=== PATIENT | male | born 1965 | race Caucasian/White ===

== ENCOUNTER 2016-11-06 15:06 | Inpatient (IN) | payer OTHER, MEDICARE ==
[~2016-11-06] VITALS: Ht 177.8 cm; Wt 101.6 kg
--- NOTE | 2016-11-06 15:27 | NUR ---
PT TO TRIAGE WITH FAMILY, SENT HERE BY HIS PCP FOR PSYCH EVAL. PT C/O HEARING THREATENING VOICES [id number]. PT DENIES SI/HI. C/O FEELING HOPELESS. APPEARED ANXIOUS,SAD, UNWILLINGLY ANSWERING QUESTIONS, PTS FAMILY ANSWERED MOST OF QUESTIONS. PT DENIES ETOH, DENIES ILLICIT DRUG USE. HX OF HTN,DEPRESSION,ANXIETY. PT TO ROOM15.
--- NOTE | 2016-11-06 15:27 | ED PSYCHIATRIC COMPLAINT ---
History of Present Illness General Chief Complaint: General Adult Stated Complaint: SENT IN FOR ANXIETY Source: patient, family Exam Limitations: confusion Vital Signs & Intake/Output Vital Signs & Intake/Output Vital Signs Date Time Temp Pulse Resp B/P Pulse O2 O2 Flow FiO2 Ox Delivery Rate 11/07 0948 79 141/85 11/07 0641 97.3 79 20 141/85 95 Room Air 11/07 0404 98.0 62 20 120/70 96 Room Air 11/07 0100 96.3 56 18 128/74 96 11/06 2304 97.2 53 20 109/59 90 11/06 1930 97.2 80 18 128/77 96 11/06 1516 97.7 72 18 137/73 94 Room Air ED Intake and Output 11/07 0000 11/06 1200 Intake Total Output Total Balance Patient 224 lb Weight Allergies Coded Allergies: No Known Allergies (11/06/16) Reconcile Medications Atenolol 50 MG TABLET 1 TAB PO DAILY HEART (Reported) Atorvastatin Calcium 40 MG TABLET 1 TAB PO DAILY CHOLESTEROL (Reported) Hydrochlorothiazide 12.5 MG CAPSULE 1 CAP PO DAILY WATER PILL (Reported) Levothyroxine Sodium 100 MCG TABLET 1 TAB PO DAILY AC THYROID (Reported) Losartan Potassium 50 MG TABLET 1 TAB PO DAILY HEART (Reported) Methadone HCl 10 MG/ML ORAL.CONC 100 MG PO DAILY RECOVERY (Reported) Quetiapine Fumarate 300 MG TABLET 1 TAB PO BID MENTAL HEALTH (Reported) Ropinirole HCl (Requip) 2 MG TABLET 1 TAB PO QPM UNKNOWN (Reported) Sertraline HCl 100 MG TABLET 2 TAB PO DAILY MENTAL HEALTH (Reported) Topiramate 100 MG TABLET 1 TAB PO QPM UNKNOWN (Reported) Trazodone HCl 100 MG TABLET 1 TAB PO QPM MENTAL HEALTH (Reported) Triage Nurses Notes Reviewed? yes (NO NOTE TO REVIEW) HPI: MR. ROE IS A 51 YO M W/ PMH DEPRESSION, ANXIETY, HYPERLIPIDEMIA, HYPOTHYROIDISM , HTN BROUGHT INTO ED BY HIS AUNTS FOR INCREASING HALLUCINATIONS. PER AUNT, PATIENT WAS JUST ADMITTED TO [facility], WHERE HE REMAINED FOR 17D, JUST DISCHARGED A FEW DAYS AGO. DURING THAT STAY, HIS SEROQUEL WAS UPTITRATED. PT WENT TO SEE HIS PCP TODAY WHO WAS CONCERNED ABOUT HIS PRESENTATION AND FELT THAT PATIENT NEEDED FURTHER MEDICATION CHANGES. PT HAS BEEN HAVING ONGOING AUDITORY HALLUCINATIONS. HE HAS THESE EPISODES OF "ELECTRIC SHOCK" ALL OVER HIS BODY. HE FEELS THAT "THESE PEOPLE" ARE DOING THIS TO HIM. THEY ALSO HAVE A "RADIATION GUN" THAT THEY SHOOT HIM WITH TO MAKE HIM SICK. AUNT ADDS THAT AT TIMES HE ACCUSES PEOPLE OF POISONING HIM W/ POISONS. HE WAS CONVICNED THAT "THESE PEOPLE" PAID ME (HIS PHYSICIAN TODAY) OFF TO BLAME IT ON HIS PSYCH PROBLEMS. HE BELIEVES THIS IS NOT PSYCH IN NATURE AND HE ONLY WANTED TO SEE A DOCTOR TO CLEAR HIM MEDICALLY. PT DENIES THE VOICES TELLING HIM TO HARM HIMSELF OR OTHERS, BUT STATES THEY HAVE FULL CONVERSATIONS. DENIES ANY DRUG USE. PATIENT IS VERY DIFFICULT TO OBTAIN HISTORY FROM HIS THOUGHTS ARE DISJOINTED. (RUBY GUTIÉRREZ MD) Past History Travel History Traveled to [place] past 21 day No Medical History Any Pertinent Medical History? see below for history Cardiovascular: hypertension, hyperlipidemia Psychiatric: anxiety, depression Endocrine: hypothyroidism Surgical History Surgical History: unobtainable Psychosocial History What is your primary language Comoran Tobacco Use: Current Daily Use Daily Tobacco Use Amount/Type: =< 4 Cigarettes daily Other addictive behavior Hx DAILY METHADONE Family History Hx Contributory? No (UNKNOWN) (RUBY GUTIÉRREZ MD) Review of Systems Review of Systems Constitutional: Reports: no symptoms. EENTM: Reports: no symptoms. Respiratory: Reports: no symptoms. Cardiovascular: Reports: no symptoms. GI: Reports: no symptoms. Genitourinary: Reports: no symptoms. Musculoskeletal: Reports: no symptoms. Skin: Reports: no symptoms. Neurological/Psychological: Reports: anxiety, cognitive dysfunction, emotional problems, other (AUDITORY HALLUCINATIONS). Hematologic/Endocrine: Reports: no symptoms. Immunologic/Allergic: Reports: no symptoms. All Other Systems: Reviewed and Negative (RUBY GUTIÉRREZ MD) Physical Exam Physical Exam General Appearance: well developed/nourished, alert, awake, anxious Head: atraumatic, normal appearance Eyes: Bilateral: normal appearance, PERRL, EOMI. Ears, Nose, Throat: normal pharynx, normal ENT inspection, hearing grossly normal Neck: normal inspection, supple, full range of motion Respiratory: normal breath sounds, chest non-tender, no respiratory distress Cardiovascular: regular rate/rhythm, normal peripheral pulses Gastrointestinal: normal bowel sounds, soft, non-tender, no organomegaly Extremities: normal range of motion Neurological/Psychiatric: awake, agitated, anxious Appearance/Memory/Insight: appropriate appearance, impaired insight Behavoir/Eye Contact/Speech: uncooperative, decreased rate of speech, PARANOID Thoughts/Hallucinations: auditory hallucinations, delusions, flight of ideas, obsessive, paranoid Skin: intact, normal color, warm/dry Cleared? (statement below) Yes Medical Clearance Statement * patient denies further consideration of suicide * no evidence of toxic ingestion * on re-evaluation the patient is awake and alert with pressured speech and normal gait. The patient is clinically sober SAD PERSONS Done? patient not suicidal (MARLA TAMAYO,RUBY) Progress Differential Diagnosis: drug intoxication, encephalitis, hypothyroidism, PSYCHOTIC EPISODE Plan of Care: Orders Procedure Date/time Status Regular Diet 11/07 L Active Regular Diet 11/07 B Complete Admit to inpatient psych 11/07 1039 Active Patient Data - inpatient psych 11/07 1014 Active Admit to inpatient psych 11/07 1014 Active EKG 11/07 1014 Active ED CRISIS PSYCH CONSULT 11/07 0917 Active Vital Signs 11/07 UNK Active Nursing Misc 11/07 UNK Active Alternative Nursing Therapy 11/07 UNK Active Activity/Ambulation 11/07 UNK Active Restraint- Discontinue 11/06 2320 Active Restraint- Behavioral (Renew) 11/06 2145 Active Add-on Test (ER Only) 11/06 1807 Active Restraint- Behavioral (Renew) 11/06 1745 Active THYROID STIMULATING HORMONE 11/06 1723 Complete Restraint- Behavioral (Initial 11/06 1658 Complete Patient Safety Monitor 11/06 1637 Active Restraint- Behavioral (Initial 11/06 1637 Complete URINE DRUGS OF ABUSE 11/06 1635 Complete ETHANOL 11/06 1635 Complete COMPREHENSIVE METABOLIC PANEL 11/06 1635 Complete CBC WITHOUT DIFFERENTIAL 11/06 1635 Complete Current Medications Sig/Bijal Start time Last Medication Dose Stop Time Status Admin Quetiapine Fumarate 300 MG ONCE ONE 11/07 1045 UNVr (Seroquel) 11/07 1046 Hydrochlorothiazide 12.5 MG DAILY 11/07 1000 UNVr (Hydrodiuril) Laboratory Tests 11/07/16 0810: Urine Opiates Screen < 100.00, Methadone Screen > 735 H, Barbiturate Screen < 60, Ur Phencyclidine Scrn 6.00, Amphetamines Screen < 100, U Benzodiazepines Scrn 147, Urine Cocaine Screen < 50, Urine Cannabis Screen < 5.00 11/06/16 1723: Anion Gap 15, Estimated GFR > 60, BUN/Creatinine Ratio 12.0, Glucose 102 H, Calcium 9.3, Total Bilirubin 0.5, AST 21, ALT 36, Alkaline Phosphatase 85, Total Protein 7.3, Albumin 4.5, Globulin 2.8, Albumin/Globulin Ratio 1.6, TSH 1.790, CBC w Diff NO MAN DIFF REQ, RBC 5.57, MCV 86.4, MCH 28.0, RDW 12.3, MPV 9.4, Gran % 57.8, Lymphocytes % 33.0, Monocytes % 7.8, Eosinophils % 0.8, Basophils % 0.6, Absolute Granulocytes 6.6 H, Absolute Lymphocytes 3.8 H, Absolute Monocytes 0.9 H, Absolute Eosinophils 0.1, Absolute Basophils 0.1, PUBS MCHC 32.4 L, Serum Alcohol < 10.0 PATIENT IS A WELL-APPEARING 51 YO M. PT IS PRESENTING W/ 2 AUNTS W/ CONCERNING ONGOING AUDITORY HALLUCINATIONS DESPITE UPTITRATION OF SEROQUEL. PT CONTINUES TO HAVE THESE EPISODES OF "SHOCKS". PATIENT'S SPEECH IS TANGENTIAL AND PRESSURED. HIS THOUGHTS ARE DISORGANIZED AND PARANOID. HE IS HAVING DELUSIONS OF "THESE PEOPLE" THAT ARE TRYING TO HARM HIM. PT WAS ASKED TO UNDRESS AND REFUSED. STARTED TO GET DRESSED AND TRIED TO LEAVE. WHEN ATTEMPTED TO RE- DIRECT BY SECURITY, PT BEGAN TO SWING. PT WAS THEN RESTRAINED IN 4PT LOCKED. HE CONTINUED TO COMPLAIN OF SHORTNESS OF BREATH, DESPITE SPEAKING FLUENTLY WITHOUT ABBREVIATED LANGUAGE. PATIENT IS HAVING PSYCHOTIC EPISODE. LABS ESSENTIALLY UNREMARKABLE. MILD LEUKOCYTOSIS, BUT GIVEN ACUTE DISTRESS OF BEING IN RESTRAINTS AND OTHERWISE ASYMPTOMATIC, LIKELY AN ACUTE STRESS RESPONSE. PT SIGNED OUT PENDING PSYCHIATRIC EVALUATION. (RUBY GUTIÉRREZ MD) 7:25 PM pATIENT SIGNED OUT TO ME BY DR GUTIÉRREZ. PENDING CRISIS EVALUATION. (JESSICA HILL MD) Hand-Off Endorsed To: CHET BHATIA MD Endorsed Time: 0700 Pending: consult (CRISIS) (JESSICA HILL MD) Departure Departure Disposition: STILL A PATIENT Condition: Stable Referrals: LORI VIDALES MD (PCP/Family) Departure Forms: Customer Survey General Discharge Information (RUBY GUTIÉRREZ MD) Departure Clinical Impression Primary Impression: Schizophrenia spectrum disorder with psychotic disorder type not yet determined Secondary Impressions: Auditory hallucinations, Psychotic episode Psych Admission Note Psychiatric Admission: I have seen and evaluated SAKSHI ROE. I have also reviewed all the pertinent lab results and diagnostic results. SAKSHI ROE will be admitted to our inpatient Psychiatric unit for treatment and care. Resident Co-Sign Statement Statement: ED Attending supervision documentation- [X] I saw and evaluated the patient. I have also reviewed all the pertinent lab results and diagnostic results. I agree with the findings and the plan of care as documented in the Resident's documentation. [] I have reviewed the ED Record and agree with the Resident's documentation. [] Additions or exceptions (if any) to the Resident's note and plan are summarized below: [] (JANNETTE TAMAYO,CHET Gutierrez) Critical Care Note Critical Care Note Critical Care Time: 30-74 min (ILZ TAMAYO,JESSICA)
[2016-11-06] MEDS ORDERED: METHADONE10 MG/1 M2 PO (15:40)
[2016-11-06] MEDS ORDERED: LOSARTAN POTASS50 M1 PO (15:40)
--- NOTE | 2016-11-06 15:40 | NUR ---
DR MELENDEZ AT BEDSIDE FOR EVAL
[2016-11-06] MEDS ORDERED: ATORVASTATIN CA40 M1 PO (15:41)
[2016-11-06] MEDS ORDERED: TRAZODONE HCL100 M1 PO (15:42)
[2016-11-06] MEDS ORDERED: REQUIP2 M1 PO (15:42)
[2016-11-06] MEDS ORDERED: TOPIRAMATE100 M2 PO (15:43)
[2016-11-06] MEDS ORDERED: LEVOTHYROXINE100 MC1 PO (15:43)
[2016-11-06] MEDS ORDERED: ATENOLOL50 M1 PO (15:43)
[2016-11-06] MEDS ORDERED: HYDROCHLOROTH12.5 M3 PO (15:43)
--- NOTE | 2016-11-06 15:48 | NUR ---
SECURITY AT BEDSIDE, PT EXPRESSING THOUGHTS OF PARANOIA AND DEMONSTRATES AGITATION ATTEMPTING TO PUSH PAST STAFF. FAMILY SPEAKING WITH MD ABOUT PT HX. PT DOES DOES NOT WANT TO STAY IN ED, REQUIRES LIMIT SETTING. TIMOTHY BORGSE AT BEDSIDE WITH SECURITY AND SITTER, ATTEMPTING TO CHANGE INTO SCRUBS
--- NOTE | 2016-11-06 15:50 | NUR ---
PT WAS UNCOOPERATIVE WITH REQUEST BY THIS RN AND 3 SECURITY GUARDS TO CHANGE INTO BLUE SCRUBS. PT ATTEMPTED TO EXIT ROOM 15 AND WAS BLOCKED BY SECURITY. PT BECAME AGITATED AND ORDER #7 WAS CALLED.
--- NOTE | 2016-11-06 15:59 | NUR ---
DR BHATIA AT BEDSIDE
--- NOTE | 2016-11-06 16:18 | NUR ---
PT ON BED IN ROOM 15 WITH BLUE SCRUB BOTTOMS ON BUT PERSONAL SHIRT ON. WILL HAVE PT CHANGE TOP WHEN OUT OF RESTRAINTS. PT CALM AT THIS TIME.
--- NOTE | 2016-11-06 16:45 | NUR ---
PT REFUSING BLOODWORK AT THIS TIME BECAUSE "HE DOESN'T AGREE WITH WHY HE IS HERE"
--- NOTE | 2016-11-06 17:28 | NUR ---
LABS SENT (SST, LAV)
[2016-11-06 17:44] LABS: ABSOLUTE BASOPHIL COUNT 0.1 /CUMM (0.0-0.2); ABSOLUTE EOSINOPHIL COUNT 0.1 /CUMM (0.0-0.7); ABSOLUTE GRANULOCYTE CT 6.6 /CUMM (1.4-6.5); ABSOLUTE LYMPH COUNT 3.8 /CUMM (1.2-3.4); ABSOLUTE MONOCYTE COUNT 0.9 /CUMM (0.10-0.60); BASOPHIL % 0.6 % (0.0-2.0); EOSINOPHIL % 0.8 % (0-5); GRANULOCYTE % 57.8 % (42.2-75.2); HEMATOCRIT 48.1 % (42-52); MEAN CORPUSCULAR HGB CONC 32.4 G/DL (33.0-37.0); MEAN CORPUSCULAR VOLUME 86.4 FL (80.0-94.0); MEAN PLATELET VOLUME 9.4 FL (7.4-10.4); PLATELET COUNT 246 /CUMM (130-400); RBC DISTRIBUTION WIDTH 12.3 % (11.5-14.5); RED BLOOD CELL CT 5.57 /CUMM (4.70-6.10)
--- NOTE | 2016-11-06 18:10 | NUR ---
CALLED DIETARY TO ORDER PT DINNER TRAY
--- NOTE | 2016-11-06 18:54 | NUR ---
PT ASKED TO PROVIDE A URINE SAMPLE BY URINAL, HE REMAINS IN 2 POINT HARD RESTRAINTS. PT REFUSING AT THIS TIME.
[2016-11-06 19:11] LABS: WHITE BLOOD CELL COUNT 11.4 /CUMM (4.8-10.8)
--- NOTE | 2016-11-06 19:30 | NUR ---
ASSUMED CARE FROM JONY AGUIRRE
--- NOTE | 2016-11-06 19:43 | NUR ---
Crisis spoke to Pt's primary care physican , see collateral note
--- NOTE | 2016-11-06 19:52 | ED PSY CRISIS COLLATERAL NOTE ---
Collateral Note Collateral Note Family/Inform/Marcial Contacts: Crisis spoke to Dr. Jhonny Gee ([phone]) to get more information about why he recommended pt be brought to ED. Dr. Gee reports he saw the pt in his office today and he presented with severe paranoia stating that there was a microphone in his ear, that all the blood work/ medical tests are lies (showing he doesn't have anything in his ear) and believing someone is poisoning his food. PCP reports pt lost approximately 17 pounds in the last 30 days. PCP reports he began to notice pt going downhill over the last 3 months. PCP reports he has known pt for 20 years. Pt was followed by a psychiatrist and therapist through [facility] but when the psychiatrist left pt was "left in limbo". PCP reports pt was hospitalized at [facility] for a few days last month and at [facility] for 17-18 days. Per PCP most recent inpatient hospitalization increased Seroquel from 400 mg every day to 600 mg every day. PCP reports it's not effective as he is still paranoid. PCP reports pt lives on his own in an apartment and that he has two aunts that help take care of him. 1 of his aunts was administering his medication to ensure he recieved it prior to the most recent inpatient hospitalization. PCP also noted that patient has a long history of polysubstance abuse and was prescribed Methadone.
--- NOTE | 2016-11-06 19:55 | NUR ---
PT UNCOOPERATIVE, LOUD, VERBALLY AGRESSIVE TOWARDS STAFF, ATTEMPTING TO REMOVE RESTRAINTS AND GET OUT OF BED. PT MEDICATED PER ORDER
--- NOTE | 2016-11-06 21:55 | NUR ---
PT STILL AGITATED. TRYING TO REMOVE RESTRAINTS. UNABLE TO REDIRECT PT. PT MEDICATED PER ORDER.
--- NOTE | 2016-11-06 23:43 | NUR ---
PT LETHARGIC. AROUSES TO VERBAL STIMULATION. RESP UNLABORED. SKIN WARM AND DRY. PT COOPERTIVE, RESTRAINTS REMOVED PER ORDER ,
--- NOTE | 2016-11-07 00:43 | NUR ---
PT SLEEPING. AROUSED TO VERBAL STIMULATION. RESP UNLABORED. SKIN WARM AND DRY. NO APPARENT DISTRESS
--- NOTE | 2016-11-07 03:19 | NUR ---
PT CONTINUES SLEEPING. RESP UNLABORED. SKIN WARM AND DRY. NO APPARENT DISTRESS. SITTER AT BEDSIDE. WILL CONTINUE TO MONITOR.
--- NOTE | 2016-11-07 06:41 | NUR ---
PT CONTINUE TO SLEEP. RESP UNLABORED. SITTER AT BEDSIDE. NO APPARNT DISTRESS.
--- NOTE | 2016-11-07 08:33 | NUR ---
PT REQUESTING MORNING MEDICATIONS, STATES HE DOES NOT KNOW WHAT HE TAKES, THAT ALL HIS BOTTLES ARE HERE. INFORMED PT THAT HIS FAMILY TOOK HIS BELONGINGS HOME. PRINTED MEDICATION LIST, REVIEWED MEDS WITH PT TO ORDER MEDICATIONS. PT REQUESTING METHADONE. REQUESTED THAT PT PROVIDES URINE SAMPLE PRIOR TO ADMINISTRATION. PT ABLE TO PROVIDE URINE SAMPLE, SENT TO LAB. MEDICATED WITH METHADONE ORDERED (SEE MAR)
--- NOTE | 2016-11-07 08:52 | NUR ---
PT MEDICATED WITH SYNTHYROID AND SEROQUEL - PT REFUSED 1 PILL OF THE SEROQUEL. STATES THAT HE ONLY TAKES 200MG AT HOME. (SEE MAR)
--- NOTE | 2016-11-07 09:49 | NUR ---
MEDICATED ORDERED (SEE MAR) PT REFUSED HYDROCHOLOITHIAZIDE - STATES HIS DOCTOR TOLD HIM HE WAS DEHYDRATED AND DOESNT WANT TO MAKE THINGS WORSE.
--- NOTE | 2016-11-07 10:05 | ED PSYCH CRISIS CONSULTATION ---
Crisis Consult Basic Assessment Date of Consult: 11/07/16 Responsible Person/Accompanied By: self Insurance Authorization: Insurance #1: Insurance name: MEDICARE A Phone number: Policy number: [id number] Group number: Authorization number: ED Provider: Patient's ED Provider: RUBY GUTIÉRREZ MD Primary Care Physician: Patient's PCP: JHONNY VIDALES MD PCP's Current Psychiatrist: medication prescribed by PCP Gerard Chief Complaint: General Adult Patient's Quote: I'm not my normal self. People are outside the door threatening to kill m Present Illness: Pt is a 51 yo male presenting to [facility] last evening with c/o of anxiety and reports of hearing voices of people threatening to kill him. Pt seen at [facility] at the request of his PCP Dr Jhonny Vidales who had seen pt earlier that day. Pt has a hx of polysubstance dependence and his been on methodone maintenance past 10 yrs at [facility] in [place]. Pt was inpatient at [facility] for 2 weeks last week for similiar presentation. Pt has a hx of inpatient at [facility] (2005) and [facility] (2006). Last evening pt presented as agitated and non-compliant and required medication sedation and restraints. Upon crisis evaluation this morning pt was much less agitated but still appeared anxious and paranoid. Pt reports that during dental surgery 2 mos ago a chip was placed either in his ear or the roof of his mouth and that it controlling his thoughts and speech. Pt wanted to be clear that he felt this was a medical issue and not a psychiatric problem. Pt continued to report that he is currently hearing people outside his door threatening to kill him. Pt also discussed that the FBI is involved with the people who are trying to kill him. he also discussed that his uncle is poisoning his food. Again he stated that he is being misdiagnosed and this isn't a psychiatric issue. Pt denies SI/HI. Pt reports wanting to be treated. Pt appears as anxious and depressed. Pt experiencing AH with paranoid delusions. Easily agitated but also quickly de- escalated when its conveyed to him that his concerns are being taken seriously and appropriate treatment will occur. collateral conversation with aunt indicates that all though he began having similiar thoughts of people wanting to kill him about 4 yrs ago, over the past 2 mos there has been a dramatic increase in these thoughts and a deteriorating ability to maintain daily functions. Patient's Address: [address] [place] [address] [place] [address] Other Phone Number: Who Do You Live With? Patient/Self Family/Informants Interviewed: Collateral provided by aunt Nicolle Bartlett . she reports pt has been not himself past 2 months. She reports he is agitated jarrett at night and is distracted by voices and becoming more withdrawn. She reports noticing pt begin talking about people killing him 4 yrs ago after his father but over the past couple months it is daily statements that he is hearing voices of people planning to kill him. she reports he was in [facility] last month but discharged with no improvement. She is only aware of recent Seroquel increase and that he gets his medications from [facility]. She reports wanting all his medications to be reviewed because she is concerned he may be responded to medication side-effects. Collateral also provided by PCP Jhonny Vidales - see note Allergies - Coded Allergies: No Known Allergies (11/06/16) Current Medications - Scheduled Medications Atenolol 50 MG TABLET 1 TAB PO DAILY HEART #30 (Reported) Entered as Reported by BRENT KUMAR on 11/06/16 1543 Atorvastatin Calcium 40 MG TABLET 1 TAB PO DAILY CHOLESTEROL #30 (Reported) Entered as Reported by BRENT KUMAR on 11/06/16 1541 Hydrochlorothiazide 12.5 MG CAPSULE 1 CAP PO DAILY WATER PILL #30 (Reported) Entered as Reported by BRENT KUMAR on 11/06/16 1543 Levothyroxine Sodium 100 MCG TABLET 1 TAB PO DAILY AC THYROID #30 (Reported) Entered as Reported by BRENT KUMAR on 11/06/16 1543 Losartan Potassium 50 MG TABLET 1 TAB PO DAILY HEART #30 (Reported) Entered as Reported by BRENT KUMAR on 11/06/16 1540 Methadone HCl 10 MG/ML ORAL.CONC 100 MG PO DAILY RECOVERY (Reported) Entered as Reported by BRENT KUMAR on 11/06/16 1540 Quetiapine Fumarate 300 MG TABLET 1 TAB PO BID MENTAL HEALTH #60 (Reported) Entered as Reported by BRENT KUMAR on 11/06/16 1541 Ropinirole HCl (Requip) 2 MG TABLET 1 TAB PO QPM UNKNOWN #30 (Reported) Entered as Reported by BRENT KUMAR on 11/06/16 1542 Sertraline HCl 100 MG TABLET 2 TAB PO DAILY MENTAL HEALTH #60 (Reported) Entered as Reported by BRENT KUMAR on 11/06/16 1541 Topiramate 100 MG TABLET 1 TAB PO QPM UNKNOWN #30 (Reported) Entered as Reported by BRENT KUMAR on 11/06/16 1543 Trazodone HCl 100 MG TABLET 1 TAB PO QPM MENTAL HEALTH #30 (Reported) Entered as Reported by BRENT KUMAR on 11/06/16 1542 Laboratory Results: Laboratory Tests 11/07/16 0810: Urine Opiates Screen < 100.00, Methadone Screen > 735 H, Barbiturate Screen < 60, Ur Phencyclidine Scrn 6.00, Amphetamines Screen < 100, U Benzodiazepines Scrn 147, Urine Cocaine Screen < 50, Urine Cannabis Screen < 5.00 11/06/16 1723: Anion Gap 15, Estimated GFR > 60, BUN/Creatinine Ratio 12.0, Glucose 102 H, Calcium 9.3, Total Bilirubin 0.5, AST 21, ALT 36, Alkaline Phosphatase 85, Total Protein 7.3, Albumin 4.5, Globulin 2.8, Albumin/Globulin Ratio 1.6, TSH 1.790, CBC w Diff NO MAN DIFF REQ, RBC 5.57, MCV 86.4, MCH 28.0, RDW 12.3, MPV 9.4, Gran % 57.8, Lymphocytes % 33.0, Monocytes % 7.8, Eosinophils % 0.8, Basophils % 0.6, Absolute Granulocytes 6.6 H, Absolute Lymphocytes 3.8 H, Absolute Monocytes 0.9 H, Absolute Eosinophils 0.1, Absolute Basophils 0.1, PUBS MCHC 32.4 L, Serum Alcohol < 10.0 Past History Past Medical History Cardiovascular: hypertension, hyperlipidemia Psychiatric: anxiety, depression Endocrine: hypothyroidism Past Surgical History Surgical History: unobtainable Psychosocial History Strengths/Capabilities: Pt owns a condo/supportive family Psychiatric Treatment History Psych Treatment Psychiatric Treatment Yes Inpatient Treatment Yes Outpatient Treatment Yes Location of Treatment [facility], [facility], [facility] Reason for Treatment Hx of anxiety, opiod dependence, psychotic d/o nos Dates of Treatment [facility]pat[facility] at [facility] 2005, [facility] 2006, [place] Oct 2016 Response to Treatment recent increased auditory paranoid hallucinations. Believes people want to kills him; believes a chip has been put in his ear or roof of his mouth Substance Use/Abuse History Drug Use/Abuse Substances Used/Abused Yes Substance Used/Abused Prescribed Opiates Last Used today How much used/taken 100mg How often daily For how long past 10 yrs Route of use oral Substance Abuse Treatment Substance Abuse Treatment Past Substance Abuse TX Yes Inpatient Treatment Yes Outpatient Treatment Yes Location of Treatment [facility]; [facility] Reason for Treatment polysubstance abuse; opiod dependence Dates of Treatment since 2005 Response to Treatment no street drugs or etoh in a few yrs Current Mental Status Mental Status Orientation: Person, Place, Situation Affect: Anxious, Depressed Speech: WNL Neuro-vegetative: Appetite Decreased, Concentration Poor, Energy Decreased, Helpless, Loss of Interest, Sleep Disturbance Appearance Appearance- Dress/Hygiene: hospital scrubs. sitting upright on end of bed. good eye contact. Behaviors Thought Process: Flight of Ideas, Irrational Thought Content: Auditory Hallucinations, Delusions, Paranoid Memory: Impaired Insight: Fair SI/HI Risk Assessment Past Suicidal Ideation/Attempts No Current Suicidal Ideation/Att No Past Homicidal Ideation/Att: No Current Homicidal Ideation/Attempts No Degree of Intent: None Risk Factors: chronic/serious med cond., high anxiety/distress, SA/MH hospitalized, substance abuse, lives alone, male Lethality Ratin PTSD Checklist PTSD Done? patient declined ED Management Sitter: Yes Restraints: Yes DSM5/PS Stressors/Medical Prob Diagnosis' (DSM 5, Stressors, Medical): Unspecified Schizophrenia Spectrum (F29) Opiod Use D/O on maintenance therapy (F11.20) High blood pressure Current GAF: 20 Comments: recent increased auditory paranoid hallucinations. Believes people want to kill him; believes a chip has been put in his ear or roof of his mouth Departure Disposition Psych Medical Clearance Date: 11/07/16 Medically Cleared at: 0930 Time Started: 35 Time Ended: 1015 Psychiatrist Consulted: Bernardo Lowe MD Date Disposition Established: 11/07/16 Time Disposition Established: 1030 Plan for Disposition - Modality: Inpatient Psychiatry Facility: [facility] Follow-up Appt Date: 11/07/16 Rationale for Disposition: Pt is actively psychotic. Paranoid delusions. reports peopel are outside his door threatening to kill him. Type of IP Admission: Voluntary Referrals JHONNY VIDALES MD (PCP/Family)
--- NOTE | 2016-11-07 11:10 | NUR ---
PT REFUSING SEROQUEL - CRISIS AWARE.
--- NOTE | 2016-11-07 11:35 | NUR ---
REPORT TO ED, RN IN CPS.
--- NOTE | 2016-11-07 11:36 | NUR ---
PER CRISIS, OKAY FOR PT NOT TO HAVE SEROQUEL AT THIS TIME.
[2016-11-07 11:55] VITALS: BP 123/81
--- NOTE | 2016-11-07 12:25 | IP CRISIS DIAG ASSESS PSYCH ---
Diagnostic Assessment Basic Assessment Insurance Authorization: Insurance #1: Insurance name: MEDICARE A Phone number: Policy number: [id number] Group number: Authorization number: Pt is medicare. No precert authorization required. Primary Care Physician: Patient's PCP: FLASH TAMAYO,JHONNY PCP's Patient's Quote: I'm not my normal self. People are outside the door threatening to kill m Present Illness: Pt is a 51 yo male presenting to [facility] last evening with c/o of anxiety and reports of hearing voices of people threatening to kill him. Pt seen at [facility] at the request of his PCP Dr Jhonny Gee who had seen pt earlier that day. Pt has a hx of polysubstance dependence and his been on methodone maintenance past 10 yrs at [facility] in [place]. Pt was inpatient at [facility] for 2 weeks last week for similiar presentation. Pt has a hx of inpatient at [facility] (2005) and [facility] (2006). Last evening pt presented as agitated and non-compliant and required medication sedation and restraints. Upon crisis evaluation this morning pt was much less agitated but still appeared anxious and paranoid. Pt reports that during dental surgery 2 mos ago a chip was placed either in his ear or the roof of his mouth and that it controlling his thoughts and speech. Pt wanted to be clear that he felt this was a medical issue and not a psychiatric problem. Pt continued to report that he is currently hearing people outside his door threatening to kill him. Pt also discussed that the FBI is involved with the people who are trying to kill him. he also discussed that his uncle is poisoning his food. Again he stated that he is being misdiagnosed and this isn't a psychiatric issue. Pt denies SI/HI. Pt reports wanting to be treated. Pt appears as anxious and depressed. Pt experiencing AH with paranoid delusions. Easily agitated but also quickly de- escalated when its conveyed to him that his concerns are being taken seriously and appropriate treatment will occur. collateral conversation with aunt indicates that all though he began having similiar thoughts of people wanting to kill him about 4 yrs ago, over the past 2 mos there has been a dramatic increase in these thoughts and a deteriorating ability to maintain daily functions. Patient's Address: [address] [place] [id number] Other Phone Number: Who Do You Live With? Patient/Self Feel Safe Where You Live? No Feel Safe in Your Relationship Yes Marital Status: single Do You Have Children? No Primary Language? Welsh Language(s) Spoken At Home: Welsh Family/Informants Interviewed: Collateral provided by aunt Nicolle Bartlett . she reports pt has been not himself past 2 months. She reports he is agitated jarrett at night and is distracted by voices and becoming more withdrawn. She reports noticing pt begin talking about people killing him 4 yrs ago after his father but over the past couple months it is daily statements that he is hearing voices of people planning to kill him. she reports he was in [facility] last month but discharged with no improvement. She is only aware of recent Seroquel increase and that he gets his medications from [facility]. She reports wanting all his medications to be reviewed because she is concerned he may be responded to medication side-effects. Collateral also provided by PCP Jhonny Gee - see note Allergies - Coded Allergies: No Known Allergies (11/06/16) Current Medications - Scheduled Medications Atenolol 50 MG TABLET 1 TAB PO DAILY HEART #30 (Reported) Entered as Reported by BRENT KUMAR on 11/06/16 1543 Atorvastatin Calcium 40 MG TABLET 1 TAB PO DAILY CHOLESTEROL #30 (Reported) Entered as Reported by BRENT KUMAR on 11/06/16 1541 Hydrochlorothiazide 12.5 MG CAPSULE 1 CAP PO DAILY WATER PILL #30 (Reported) Entered as Reported by BRENT KUMAR on 11/06/16 1543 Levothyroxine Sodium 100 MCG TABLET 1 TAB PO DAILY AC THYROID #30 (Reported) Entered as Reported by BRENT KUMAR on 11/06/16 1543 Losartan Potassium 50 MG TABLET 1 TAB PO DAILY HEART #30 (Reported) Entered as Reported by BRENT KUMAR on 11/06/16 1540 Methadone HCl 10 MG/ML ORAL.CONC 100 MG PO DAILY RECOVERY (Reported) Entered as Reported by BRENT KUMAR on 11/06/16 1540 Quetiapine Fumarate 300 MG TABLET 1 TAB PO BID MENTAL HEALTH #60 (Reported) Entered as Reported by BRENT KUMAR on 11/06/16 1541 Ropinirole HCl (Requip) 2 MG TABLET 1 TAB PO QPM UNKNOWN #30 (Reported) Entered as Reported by BRENT KUMAR on 11/06/16 1542 Sertraline HCl 100 MG TABLET 2 TAB PO DAILY MENTAL HEALTH #60 (Reported) Entered as Reported by BRENT KUMAR on 11/06/16 1541 Topiramate 100 MG TABLET 1 TAB PO QPM UNKNOWN #30 (Reported) Entered as Reported by BRENT KUMAR on 11/06/16 1543 Trazodone HCl 100 MG TABLET 1 TAB PO QPM MENTAL HEALTH #30 (Reported) Entered as Reported by BRENT KUMAR on 11/06/16 1542 Consequences of Psych Med Use: recent increase of seroquel hasn't improved symptoms Lab Results: Laboratory Tests 11/07/16 0810: Urine Opiates Screen < 100.00, Methadone Screen > 735 H, Barbiturate Screen < 60, Ur Phencyclidine Scrn 6.00, Amphetamines Screen < 100, U Benzodiazepines Scrn 147, Urine Cocaine Screen < 50, Urine Cannabis Screen < 5.00 11/06/16 1723: Anion Gap 15, Estimated GFR > 60, BUN/Creatinine Ratio 12.0, Glucose 102 H, Calcium 9.3, Total Bilirubin 0.5, AST 21, ALT 36, Alkaline Phosphatase 85, Total Protein 7.3, Albumin 4.5, Globulin 2.8, Albumin/Globulin Ratio 1.6, TSH 1.790, CBC w Diff NO MAN DIFF REQ, RBC 5.57, MCV 86.4, MCH 28.0, RDW 12.3, MPV 9.4, Gran % 57.8, Lymphocytes % 33.0, Monocytes % 7.8, Eosinophils % 0.8, Basophils % 0.6, Absolute Granulocytes 6.6 H, Absolute Lymphocytes 3.8 H, Absolute Monocytes 0.9 H, Absolute Eosinophils 0.1, Absolute Basophils 0.1, PUBS MCHC 32.4 L, Serum Alcohol < 10.0 Toxicology Screen Completed? Yes Results: positive Symptoms of Use: methadone maintenance Past History Abuse/Trauma History Trauma History/Current Trauma: Denies Legal History Current Legal Status: none Have you ever been arrested? No Number of Arrests: 0 Psychosocial History Strengths/Capabilities: Pt owns a condo/supportive family Psychiatric Treatment History Psych Treatment Psychiatric Treatment Yes Inpatient Treatment Yes Outpatient Treatment Yes Location of Treatment [facility], [facility], [facility] Reason for Treatment Hx of anxiety, opiod dependence, psychotic d/o nos Dates of Treatment Inpatent at [facility] 2005, [facility] 2006, [place] Oct 2016 Response to Treatment recent increased auditory paranoid hallucinations. Believes people want to kills him; believes a chip has been put in his ear or roof of his mouth Risk Factors: chronic/serious med cond., high anxiety/distress, SA/MH hospitalized, substance abuse, lives alone, male Substance Use/Abuse History Drug Use/Abuse minimum 12mo Hx Substances Used/Abused Yes Substance Used/Abused Prescribed Opiates Last Used today How much used/taken 100mg How often daily For how long past 10 yrs [address] of use oral Substance Abuse Treatment Substance Abuse Treatment Past Substance Abuse TX Yes Inpatient Treatment Yes Outpatient Treatment Yes Location of Treatment [facility]; [facility] Reason for Treatment polysubstance abuse; opiod dependence Dates of Treatment since 2005 Response to Treatment no street drugs or etoh in a few yrs Education History Highest Level of Education: high school/GED Preferred Learning Style: visual, auditory, experiential Current Mental Status Mental Status Orientation: Person, Place, Situation Affect: Anxious, Depressed Speech: WNL Neuro-vegetative: Appetite Decreased, Concentration Poor, Energy Decreased, Helpless, Loss of Interest, Sleep Disturbance Appearance Appearance- Dress/Hygiene: hospital scrubs. sitting upright on end of bed. good eye contact. Behaviors Thought Process: Flight of Ideas, Irrational Thought Content: Auditory Hallucinations, Delusions, Paranoid Memory: Impaired Insight: Fair SI/HI Risk Assessment - Minimum 6mo History- Past Suicidal Ideation/Attempts No Current Suicidal Ideation/Att No Past Homicidal Ideation/Att: No Current Homicidal Ideation/Attempts No Degree of Intent: None Risk Factors: chronic/serious med cond., high anxiety/distress, SA/MH hospitalized, substance abuse, lives alone, male Lethality Ratin Needs/Init TX Plan/Goals: complete psychiatric evaluation medication management Individual, group and Family Tx coordianted discharge planning AUDIT-C Questionnaire: AUDIT-C Questionnaire: Response Value ETOH use in the past year Never 0 # drinks typical/day Doesn't Drink 0 6 or > drinks per occasion Never 0 Total 0 DSM5/PS Stressors/Medical Prob Diagnosis' (DSM 5, Stressors, Medical): Unspecified Schizophrenia Spectrum (F29) Opiod Use D/O on maintenance therapy (F11.20) High blood pressure Current GAF: 20 Comments: recent increased auditory paranoid hallucinations. Believes people want to kill him; believes a chip has been put in his ear or roof of his mouth
--- NOTE | 2016-11-07 13:42 | NUR ---
Admitted from ED on voluntary for unspecified schizophrenia, paronoia, AH, VH. voices are not command in nature although he was unable to provide accurate description of content. VH is described as shadows. Paronoia is described as microphones in head, being poisoned. Mood is stable, euthymic. became a little irritated when oriented to the reality that the voices and paronoia were not experienced by me. has a hx of substance abuse, sober 6 years. was not able to fully patricpate in admission process due to thought blocking and other psychosis. Is on methadone maintenence at [facility] in [place]. Crisis report indicates that it was verified by seeing take home bottles.
[2016-11-07 15:52] VITALS: BP 138/75
--- NOTE | 2016-11-07 15:58 | CPS MD/APRN INITIAL ASSE PSYCH ---
See Addendum Psychiatric Admission Deck Cadet's Note Reviewed: Yes Patient Seen and Examined: Yes Identifying Information: 51-year-old single, domiciled, unemployed man with history of opiate use disorder, benzodiazepine use disorder, previous psychiatric hospitalization at [facility] in 2006 for polysubstance use as well as question depressive disorder, presenting to [facility] currently for worsening paranoid and delusional ideation Chief Complaint: "I'm just here because of my medical problems, there is nothing psychiatrically wrong with me" Reaction to Hospitalization: Displeased to be treated on a psychiatric unit History of Present Illness Onset of Illness: Extensive collateral information was obtained by the crisis social work assistant from the patient's long-standing outpatient primary care physician, Dr. Jhonny Gee ([phone]), as well as the patient's 2 aunts, who appear to be the closest social contacts for the patient. Collateral from both the sources suggest a recent worsening in the patient's psychiatric condition over the past 2 months, most notably growing increasingly paranoid and delusional. The patient had a very recent 2-3 week hospitalization at [facility] in October due to psychotic symptoms. Circumstances Leading to Admission: Paranoid ideation, believes that a microchip has been placed within his ear, that unknown individuals are attempting to poison and kill him. Highly agitated in the emergency primary requiring physical and chemical restraints. Problem(s) Justifying Need for Admission: See above Other HPI: I reviewed the patient's discharge summary from his [facility] physician in 2006. At that time the patient's discharge diagnoses were overwhelmingly substance use disorder based including opiate, benzodiazepine, cocaine, alcohol abuse/dependence. He was also diagnosed with an unspecified depressive disorder, rule out major depressive disorder as well as cluster a and cluster B personality traits. There was limited if any suggestion of a serious psychotic disorder at that time. Of note, at that time the patient was taking Requip, so he's been taking this dopamine agonist for many many years. I called his outpatient pharmacy [facility] in [facility] to see if there been any dose changes recently and is Requip. He confirmed that his doses actually recently been up titrated from 1 mg to 2 mg nightly beginning in September,, thus at least corresponding with worsening of describe psychotic symptoms. Past Psychiatric History Past Diagnosis(es)- if any: From discharge summary, [facility], 2006: Opiate, cocaine, benzodiazepine, alcohol abuse/dependence Unspecified depressive disorder Rule out major depressive disorder Cluster a and B personality traits Past Precipitating Factors- if any: Substance abuse - Include inpatient and outpatient treatment Treatment History: Inpatient psychiatric hospitalization in 2006 at [facility]. [place]. Recent hospitalization in October 2016 at [facility] for psychosis. History of Suicide Attempts or Gestures Denies Substance Abuse History: Extensive. See above past diagnoses. Currently on methadone maintenance, 100 mg daily, admission U tox was negative, and denies current illicit substance use. Is corroborated by his aunts who know the patient well. Allergies: Coded Allergies: No Known Allergies (11/06/16) Home Med List: From initial ER note: Atenolol 50 MG TABLET 1 TAB PO DAILY HEART (Reported) Atorvastatin Calcium 40 MG TABLET 1 TAB PO DAILY CHOLESTEROL (Reported) Hydrochlorothiazide 12.5 MG CAPSULE 1 CAP PO DAILY WATER PILL (Reported) Levothyroxine Sodium 100 MCG TABLET 1 TAB PO DAILY AC THYROID (Reported) Losartan Potassium 50 MG TABLET 1 TAB PO DAILY HEART (Reported) Methadone HCl 10 MG/ML ORAL.CONC 100 MG PO DAILY RECOVERY (Reported) Quetiapine Fumarate 300 MG TABLET 1 TAB PO BID MENTAL HEALTH (Reported) Ropinirole HCl (Requip) 2 MG TABLET 1 TAB PO QPM UNKNOWN (Reported) Sertraline HCl 100 MG TABLET 2 TAB PO DAILY MENTAL HEALTH (Reported) Topiramate 100 MG TABLET 1 TAB PO QPM UNKNOWN (Reported) Trazodone HCl 100 MG TABLET 1 TAB PO QPM MENTAL HEALTH (Reported) - Include any medical condition(s) that may - impact the patient's recovery/remission Past Medical History: As above Past History Medical History Neurological: NONE EENT: NONE Cardiovascular: hypertension, hyperlipidemia Respiratory: NONE Gastrointestinal: NONE Hepatic: NONE Renal: NONE Musculoskeletal: NONE Psychiatric: anxiety, depression Endocrine: hypothyroidism Blood Disorders: NONE Cancer(s): NONE History of MRSA: No History of VRE: No History of CDIFF: No Surgical History Surgical History: unobtainable (due to psychosis) Psychiatric Family/Social Hx Family History Psychiatric Illness: Unknown Substance Use: Unknown Suicides: Unknown Social History Living Situation: Lives independently in [facility] with close support from aunts Significant Relationships (family/friends): Only relationship known his with his 2 aunts Education: Unknown Vocation/Occupation: Unemployed Legal: None known Healthly Behaviors Screening Tobacco Screening Tobacco Use from ED Docu: Current Daily Use Daily Tobacco Use Amount/Type: =< 4 Cigarettes daily - If tobacco counseling indicated - the following topics are required. - #1 Recognizing dangerous situations. - #2 Coping Skills. - #3 Basic information about quitting. Status of Tobacco Cessation Counseling: Counseling Refused (due to psychotic condition) Cessation Med Status: Nicotine Patch Ordered Alcohol Screening - ETOH screen POS if BAL >=80 or Audit-C>= M4/F3 Audit-C Score from Diag Assess: 0 Blood Alcohol Level: Laboratory Tests 11/06 172 Toxicology Serum Alcohol (<10 MG/DL) < 10.0 Alcohol Use Screening Results: Neg per Audit C &/or BAL - If ETOH counseling indicated - the following topics are required. - #1 Express concern about the patient's - drinking at unhealthy levels, include informing - of national norms for moderate drinking: - men <= 14 drinks/week, max 4 drinks/occasion - women <= 7 drinks/week, max 3 drinks/occasion - #2 Providing feedback, including linking alcohol to - negative physical effects (liver injury, hypertension) - negative emotional effects (relationship problems and - depression) - negative occupational consequences (reduced work - performance) - #3 Advising the patient to abstain from alcohol or - to drink below national norms for moderate drinking - (as listed above). Status of ETOH Use Counseling: N/A B/C NO ETOH Use Metabolic Screening - Screen if on a Neuroleptic Medication - Metabolic screening should include: - Blood Pressure, BMI, Glucose or Hgb A1c, & a - Lipid profile from within the past 365 days. Metabolic Screening () Not Applicable, patient not on a neuroleptic. OR () Patient on a neuroleptic(s) . Enter below results for Glucose or Hemoglobin A1C, and lipid panel if obtained during the last 365 days. BMI: 32.100 Blood Pressure: 138/75 Laboratory Results (If applicable): Will order metabolic panel Exam and Plan Mental Status Examination Ambulation Status: STable Appearance: Disheveled, malodorous Attitude towards examiner: Moderately cooperative Psychomotor activity: Mild activation Behavior: Non bizarre Quality of speech: WNL Affect: Odd Mood: "frustrated" Suicidal Ideation: Denies Homicidal Ideation: Denies Hallucinations: Denies Paranoid/Delusional Material: Feels as though a microphone or microchip has been planted in his ear. He feels this is been planted by "people who would like to see me killed ". He also describes various somatic sensations such as "lightening running through my entire body ". Difficulties with thought organization: Significant: Demonstrates tangentiality as well as thought blocking on interview Insight: Absent Judgment: Poor Orientation: To person and place Cognition: Grossly intact. Unable to cooperate with more detailed cognitive testing Memory Function: Appears grossly intact, however unable to cooperate with cognitive testing Estimate of intellectual functioning: Unable to discern given current clinical condition Assets/Strengths Patient Identified Assets/Strengths: Supportive aunts. Reported substance use sobriety. Impression/Plan Impression and Plan: 51-year-old man with history of severe substance use including opiates, cocaine, benzodiazepines, alcohol for which she is on methadone maintenance with reported sobriety for many years. Unusual presentation of worsening psychotic symptoms over the past few months that are mainly of paranoid ideation of others inserting microphone or microchip into the patient. The psychotic presentation seems quite different from his previous presentations to psychiatric treatment that my understanding were mostly focused around substance use and either substance-induced mood disorders or unipolar mood disorders on their own. The most important question therefore is further understanding of the time course of the psychotic episode, and If indeed acute/subacute, what is the inciting factor. If the time course is acute/subacute, would be most concerned for her medication side effect, recently resumed substance use (despite neg utox may be using intermittently), or other organic etiology. Regarding medication side effect, his use of a dopamine agonist to treat restless leg symptoms is interesting as is the fact that the up titration from 1-2 mg that occurred in September seems to at least roughly corresponding with his worsening and psychotic symptoms. This is but one possibility to count for his current psychosis. 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 - Initial Tx Plan for Active Psych & Medical Conditions Treatment Plan: -Admit to [facility] CPS -15 minute checks appropriate currently -Will hold ropinirole for this evening given the possibility that this is driving the psychotic episode -Continue Seroquel 200 mg in the morning and 300 mg at night with as needed doses -Given the patient's demonstration to become highly agitated and aggressive most likely due to paranoid ideation, will give Seroquel as needed for mild agitation , however would opt for Thorazine 100 mg PO in the setting of severe agitation, or if not accepting by mouth, would treat with Thorazine 50 mg IM. -Further collateral information will be gates for optimal treatment. Need to obtain records from recent [facility] stay at minimum - Factors that would help patient function - in a less restrictive setting. Factors: Improved psychotic symptoms
[2016-11-07 19:47] VITALS: BP 138/86
--- NOTE | 2016-11-07 21:16 | NUR ---
PT IS NOT STABLE, DISORGANIZED IN THOUGHT AND HAS A FLAT AFFECT. PT IS EXTREMELY PARANOID. HE APPROACHES THE NURSES STATION MULTIPLE TIMES REQUESTING TO LEAVE THE UNIT BECAUSE HE HEARS "VOICES SAYING THEY WANT TO BLOW ME UP" AND HE DOES NOT FEEL SAFE ON THIS UNIT AT THE MOMENT. PT IS REASSURED THAT HE IS VERY SAFE HERE AND IS ABLE TO BE REDIRECTED. TANGENTIAL IN THINKING. VS ARE STABLE AND PT DENIES ANY SI/HI TO THIS MHW.
--- NOTE | 2016-11-08 06:02 | NUR ---
PATIENT SPENT FIRST PART OF NIGHT STILL PERSEVERATING ON BANGING NOISE IN CEILING THAT IS MOSTLY LIKELY A PLUMBING ISSUE; HE STILL INSISTED THE NOISE WAS PEOPLE COMING AFTER HIM; HE REFUSED PRN MEDICATIONS AND SLEPT AFTER 0145.
[2016-11-08 08:12] VITALS: BP 147/93
[2016-11-08 12:29] VITALS: BP 100/55
--- NOTE | 2016-11-08 12:37 | NUR ---
DR ZUNIGA REVIEWED ABNORMAL EKG. NO NEW ORDERS AT THIS TIME
--- NOTE | 2016-11-08 13:46 | History & Physical ---
General Information and HPI MD Statement: I have seen and personally examined SAKSHI ROE and documented this H&P. The patient is a 51 year old M who presented with a patient stated chief complaint of auditory hallucinations/psychosis, increased anxiety and confusion per ED. Source of Information: patient, old records Exam Limitations: clinical condition (TANGENTIAL/POOR HIST), confusion, poor historian History of Present Illness: The patient is a 51 yo male with h/o HTN, Hyperlipidemia, hypothyroid, and depression/anxiety who was brought to the [place] ED by his aunts who were concerned regarding his behavior with auditory hallucinations. He had just been discharged from [facility] a few days prior after a 17 day stay there and titration of Seroquel. Chart states that he stated he had episodes of electric shocks all over his body ant that they were shooting him with a radiation gun to make him sick. I attempted to obtain a history from this patient myself in the presence of a South worker, however due to significant paranoia and tangential thought processes, I was unable to get a detailed history. He declined to give me a family history. Did state that he had an "infection" in his mouth and his right "ear". Also stated he felt short of breath, chest pain, abdominal pain, and nausea at times. He did not acknowledge any psychiatric issues. Allergies/Medications Allergies: Coded Allergies: No Known Allergies (11/06/16) Home Med list Atenolol 50 MG TABLET 1 TAB PO DAILY HEART (Reported) Atorvastatin Calcium 40 MG TABLET 1 TAB PO DAILY CHOLESTEROL (Reported) Hydrochlorothiazide 12.5 MG CAPSULE 1 CAP PO DAILY WATER PILL (Reported) Levothyroxine Sodium 100 MCG TABLET 1 TAB PO DAILY AC THYROID (Reported) Losartan Potassium 50 MG TABLET 1 TAB PO DAILY HEART (Reported) Methadone HCl 10 MG/ML ORAL.CONC 100 MG PO DAILY RECOVERY (Reported) Quetiapine Fumarate 300 MG TABLET 1 TAB PO BID MENTAL HEALTH (Reported) Ropinirole HCl (Requip) 2 MG TABLET 1 TAB PO QPM UNKNOWN (Reported) Sertraline HCl 100 MG TABLET 2 TAB PO DAILY MENTAL HEALTH (Reported) Topiramate 100 MG TABLET 1 TAB PO QPM UNKNOWN (Reported) Trazodone HCl 100 MG TABLET 1 TAB PO QPM MENTAL HEALTH (Reported) Compliance With Home Meds: UNKNOWN Past History Travel History Traveled to [place] past 21 day No Medical History Neurological: NONE EENT: NONE Cardiovascular: hypertension, hyperlipidemia Respiratory: NONE Gastrointestinal: NONE Hepatic: NONE Renal: NONE Musculoskeletal: NONE Psychiatric: anxiety, depression Endocrine: hypothyroidism Blood Disorders: NONE Cancer(s): NONE History of MRSA: No History of VRE: No History of CDIFF: No Isolation History: Standard Surgical History Surgical History: unobtainable Past Family/Social History Family History Relations & Conditions if any MOTHER (THE PATIENT DECLINED TO GIVE FAMILY HISTORY). Psychosocial History Where do you live? Home Primary Language: German Other Social History: DAILY METHADONE Functional Ability Ambulation: independent Review of Systems Review of Systems Constitutional: Denies: no symptoms. EENTM: Reports: blurred vision, ear pain, throat pain. Cardiovascular: Denies: no symptoms. Respiratory: Denies: no symptoms. GI: Denies: no symptoms. Genitourinary: Denies: no symptoms. Musculoskeletal: Denies: no symptoms. Skin: Denies: no symptoms. Neurological/Psychological: Reports: anxiety, depressed. Hematologic/Endocrine: Denies: no symptoms. Immunologic/Allergic: Denies: no symptoms. Exam & Diagnostic Data Last 24 Hrs of Vital Signs/I&O Vital Signs Date Time Temp Pulse Resp B/P Pulse O2 O2 Flow FiO2 Ox Delivery Rate 11/08 1229 69 100/55 11/08 0829 73 147/93 11/08 0812 97.7 73 147/93 11/07 1947 98.0 70 138/86 11/07 1552 75 138/75 Physical Exam General Appearance Alert, Oriented X3, DID NOT COOPERATE WITH HX OR EXAM, VERY PARANOID Skin No Rashes, No Breakdown HEENT Atraumatic, PERRLA, EOMI, DRY ORAL MUCOSA, NO LESIONS Neck Supple, No JVD, No thryomegaly, No LAD Cardiovascular Regular Rate, Normal S1, Normal S2, No Murmurs Lungs Clear to Auscultation, Normal Air Movement Abdomen Normal Bowel Sounds, Soft, No Tenderness Neurological Exam Findings: Normal Gait, Normal Speech, Strength at 5/5 X4 Ext, Normal Tone, Sensation Intact, Cranial Nerves 3-12 NL, Reflexes 2+ Cranial Nerves II through XII: INTACT Extremities No Clubbing, No Cyanosis, No Edema, Normal Pulses, No Tenderness/ Swelling Vascular Normal Pulses, Pulses Symmetrical Last 24 Hrs of Labs/Willem: Laboratory Tests 11/07/16 0810: Urine Opiates Screen < 100.00, Methadone Screen > 735 H, Barbiturate Screen < 60, Ur Phencyclidine Scrn 6.00, Amphetamines Screen < 100, U Benzodiazepines Scrn 147, Urine Cocaine Screen < 50, Urine Cannabis Screen < 5.00 11/06/16 1723: Anion Gap 15, Estimated GFR > 60, BUN/Creatinine Ratio 12.0, Glucose 102 H, Calcium 9.3, Total Bilirubin 0.5, AST 21, ALT 36, Alkaline Phosphatase 85, Total Protein 7.3, Albumin 4.5, Globulin 2.8, Albumin/Globulin Ratio 1.6, TSH 1.790, CBC w Diff NO MAN DIFF REQ, RBC 5.57, MCV 86.4, MCH 28.0, RDW 12.3, MPV 9.4, Gran % 57.8, Lymphocytes % 33.0, Monocytes % 7.8, Eosinophils % 0.8, Basophils % 0.6, Absolute Granulocytes 6.6 H, Absolute Lymphocytes 3.8 H, Absolute Monocytes 0.9 H, Absolute Eosinophils 0.1, Absolute Basophils 0.1, PUBS MCHC 32.4 L, Serum Alcohol < 10.0 Diagnostic Data EKG Results NSR WITH NSSTCH QTC [id number] Assessment/Plan Assessment: #Psychosis/Hallucinations/Depression/Anxiety- recent stay at [facility] for same and family concerned that he did not improve after his stay there. Plan: The patient was admitted to [facility] for evaluation and treatment. #Essential HTN- patient on Atenolol/HCTZ. BP good. Plan: Continue usual medication and follow BP. #Hyperlipidemia- on Atorvastatin. Plan: Continue Atorvastatin. #Hypothyroid- on Levothyroxine and euthyroid. Plan: Continue Levothyroxine. #Dry Mouth- patient states he has "infection" in mouth and right "ear", however exam only indicates dry mucosa in mouth (no erythema/lesions seen). May be related to anti-cholinergic side effects of psych meds. He did take his dentures out for my exam. Plan: Patient was encouraged to drink more fluids. As Ranked By This Provider Problem List: 1. Psychotic episode 2. Auditory hallucinations 3. Schizophrenia spectrum disorder with psychotic disorder type not yet determined 4. Essential hypertension 5. Hyperlipidemia 6. Hypothyroid Miscellaneous Miscellaneous Documentation Attending Case Discussed With: SHELBIE TAMAYO,VIKKI Primary Care Physician: LORI VIDALES MD Patient sees these Specialists NONE Level of Patient Care: TOM Jaramillo Consults Needed: Consulting Physician: NONE Attending MD Review Statement Attending Statement Attending MD Statement: examined this patient, discussed with nursing, amended to note Attending Assessment/Plan: The patient was seen today at noon.
--- NOTE | 2016-11-08 14:33 | NUR ---
PT IS PARANOID AND DELUSIONAL. HE IS UNABLE TO TOLERATE THE GROUPS PROCESS.HE WAS VERY RESISTIVE TO TAKING HIS MEDS. HE WAS DEMANDING TO SEE THE PACKAGES THE MEDS WERE IN AND DEMANDING TO SEE THE COMPUTER SCREEN. FOR THE MOST PART HE WAS REDIRECTABLE. HE IS IRRITABLE IN HIS MOOD. THE PIPES IN THE CEILING NEAR HIS ROOM WERE BANGING AND HE WAS AFRAID TO GO IN HIS ROOM HE BELIEVED SOMEONE WAS TRYING TO BREK INTO HIS ROOM. IT WAS DIFFICULT TO REASSURE HIM THAT HE WAS SAFE. PT DID DENY ANY SUICIDAL THOUGHTS OR THOUGHTS OF SELF HARM AT THIS TIME
--- NOTE | 2016-11-08 14:36 | CP SOUTH PROGRESS NOTE PSYCH ---
Psych (Inpt) Progress Note Progress Note Progress Note: I discussed this patient's progress to date, current mental status, treatment process in the context of the treatment plan, and discharge planning with staff/ team in the daily morning inpatient team meeting. I also met with the patient myself in individual session. A total of 25 minutes was spent with the patient with more than 50% spent in counseling and/or coordination of care. OBJECTIVE: Current Medications Sig/Bijal Start time Last Medication Dose Route Stop Time Status Admin Atenolol 50 MG DAILY 11/07 1000 AC 11/08 PO 0829 Atorvastatin Calcium 40 MG 1700 11/08 1700 AC PO Chlorpromazine 100 MG Q2 HRS NEEDED PRN 11/07 1545 AC PO Hydrochlorothiazide 12.5 MG DAILY 11/07 1000 AC 11/08 PO 0829 Levothyroxine Sodium 0.1 MG DAILY AC 11/07 0758 AC 11/08 PO 0616 Losartan Potassium 50 MG DAILY 11/07 1000 AC 11/08 PO 0829 Methadone HCl 100 MG 8AM 11/08 0800 AC 11/08 PO 0828 Quetiapine Fumarate 200 MG 8AM 11/08 0800 AC 11/08 PO 0831 Quetiapine Fumarate 300 MG AT BEDTIME 11/07 2200 AC 11/07 PO 2121 Quetiapine Fumarate 50 MG Q2 HRS NEEDED PRN 11/07 1530 AC 11/08 PO 1231 Ropinirole HCl 1 MG AT BEDTIME 11/07 2200 DC PO Sertraline HCl 200 MG DAILY 11/07 1000 AC 11/08 PO 0830 Topiramate 100 MG AT BEDTIME 11/07 2200 AC 11/07 PO 2121 Trazodone HCl 100 MG QPM 11/07 2200 AC 11/07 PO 2121 Vital Signs Date Time Temp Pulse Resp B/P Pulse O2 O2 Flow FiO2 Ox Delivery Rate 11/08 1229 69 100/55 11/08 0829 73 147/93 11/08 0812 97.7 73 147/93 11/07 1947 98.0 70 138/86 11/07 1552 75 138/75 ASSESSMENT: Crisis notes, doctors initial assessment and progress notes reviewed. Patient presents today with elevated paranoid ideation, complaining of active and constant auditory and olfactory hallucinations. He does not however recognize the sounds and voices that he is hearing as hallucinations, rather he believes that unknown beings are manipulating his medical condition, and have placed "chips" his body. During our conversation, he removed his upper and lower dentures and requested that I examined him to see if there were "transmitters" implanted in his dentures. He frequently closes his eyes, apparently responding to internal stimuli. At one point he stated "They say my blood pressures is going to go up, and it does. Somebody is making me sick." During our interview today, he constantly asked to see my notes, to see his laboratory results, and to be continually examined for various maladies including sore throat, blood pressure that goes up and down, blurry vision, feeling dizzy. He is unkempt, and has the body odor of someone has not bathed in quite a while. The patient was offered the opportunity take a shower and wear clean clothes, which he has agreed to. animal care service worker Imelda Garcia, has spoken with his aunt/conservator, will be signing releases and approving medication changes. Denies suicidal ideation, homicidal ideation. Speech is well articulated, paranoid and delusional, average in rate, volume and tone. The patient understands the risks/benefits/side effects of the medication and is agreeable to continue taking them. PLAN: Discontinue Requip, as there is some suspicion that the dopamine agonist may have had some part in the patient's exacerbation of psychotic symptoms. Currently taking Seroquel, after discussion with the patient's conservator, we may consider changing medications, perhaps risperidone or olanzapine. Continue with current management as patient is improving. Continue to provide support and encouragement.
[2016-11-08 15:56] VITALS: BP 124/64
--- NOTE | 2016-11-08 16:17 | SOCIAL WORKER TX PLAN PSYCH ---
Treatment Plan - Please Document: - Evidence that there is ongoing collaboration between - the patient and the interdisciplinary team, - including the patient's active participation and - responsibility for engaging in the treatment regimen, - and that the treatment plan is individualized and - relevant to the patient's conditions. - Treatment plan should reflect documentation indicating - that all active therapeutic efforts are included. Strengths/Capabilities: Pt owns a condo/supportive family Patient Identified Trmt Goals: "I want my life back" Discharge Plan: [facility] for outpatient services or explore mental health IOP Problem/Goals #1 Problem #1: psychosis Goal (Short Term): Patient will be open to taking new medications to help with symptoms Goal (Chcf): Patient will report a decrease in people wanting to kill him and be able to verbalize increased safety. Interventions: patient will be offered medication management with the BLUE LEATHER SORTER, groups on symptom management, coping skills, relaxation group, art therapy. Production Foreman will assess symptoms of psychosis daily and check in to see if patient is feeling safe. Production Foreman will coordinate with family and outside providers to plan for aftercare. DSM5/PS Stressors/Medical Prob Diagnosis' (DSM 5, Stressors, Medical): Unspecified Schizophrenia Spectrum (F29) Opiod Use D/O on maintenance therapy (F11.20) High blood pressure Current GAF: 20 Treatment Team - Responsibilities of members of the treatment team include: - Medication Management- MD or BLUE LEATHER SORTER - Medication Administration and Monitoring- Nurse - Group Therapy- Occupational Therapist - 1:1 Therapy,Disch Planning,family involvement-Production Foreman
--- NOTE | 2016-11-08 16:17 | SOCIAL WORKER PROG NOTE PSYCH ---
Social Work Progress Note Progress Note Will's Aunt Nicolle Gilman called to ask for an update. I told her that I hadn' t seen Will yet, but I will be working with him. She reported that she is his conservator of person and estate. I asked if we could get a copy of the documentation. She said she will send a copy with Will's Aunt Kenzie when she comes in later for visiting hours. She talked about how Will is really struggling due to hearing voices stating they are going to kill him. She acknowledged that he has been so frightened that she sometimes has to sleep in the same bed as him. He bought a condo in May in [place]. He receives $1400 in social security disability a month. He has been connected to [facility] in [place] for treatment. She reported he usually sees a psychologist Guerline Padilla and REFUGIO Mullins (she couldn't remember her last name). She reports that he has been struggling with muscle spasms in his arms and legs. He reports that there is a electrical current happening in his body. I asked Ms. Gilman if she would be willing to come in for a family meeting tomorrow at 11am? She accepted. I will have her sign releases at that time. Introduced myself to Will who was resting in his room. Patient presented with a strong body odor and looked very cautious of my presence. I kept it brief and told him that I spoke with his Aunt and that she is coming for a meeting with us tomorrow. He asked how I had spoken with his Aunt even before speaking with him ? I told him that I knew there was a current release and that she called my direct line, looking for an update. I told him that his Aunt Kenzie would be here to see him later for visiting hours. He asked how I knew this information. I told him his Aunt shared that with me. He laid back down on the bed and told me that he was having alot of medical problems and unless he was going to speak with someone about his medical issues he didn't want to talk. I told him that Andre Zacarias APRN would be helping him with his medical issues and that nursing would certainly be checking in with him.
[2016-11-08 19:48] VITALS: BP 139/74
--- NOTE | 2016-11-08 22:11 | NUR ---
PT IS VISIBLE ON UNIT, MOSTLY STAYING AROUND NURSE'S STATION. MINIMAL INTERACTION WITH PEERS. PT APPEARS VERY PARANOID, CONSTANTLY REPORTING TO STAFF THAT HE IS MEDICALLY ILL AND IS DYING. PT RESISTS REDIRECTION BUT WILL USUALLY COMPLY. ATTENDED WRAP UP BUT LEFT THE MEETING SHORTLY AFTER IT STARTING. NO SI REPORTED. PT HAS AN ANXIOUS MOOD AND LABILE AFFECT.
--- NOTE | 2016-11-09 04:30 | NUR ---
AWAKE ONCE TO THE BATHROOM.
[2016-11-09 08:20] VITALS: BP 142/90
--- NOTE | 2016-11-09 09:21 | NUR ---
PT BECAME AGITATED THIS MORNING HE PERCEIVED THAT HE WAS "POISONED" DURING THE NIGHT AND WAS TRYING TO SHOW STAFF A GREEN SUBSTANCE IN HIS MOUTH. HE WAS DEMANDING TO SEE A DOCTOR AND DEMANDING A WRITTEN REPORT. PT DID NOT APPEAR TO HAVE A FOREIGN SUBSTANCE IN HIS MOUTH AND WAS ENC TO BRUSH HIS TEETH. HE REFUSED AND BECAME LOUD AND REFUSING TO TAKE HIS MEDS. SECURITY WAS CALLED AND IN THEIR PRESENCE HE DID CALM DOWN AND TAKE HIS MEDS. WILL MONITOR EFFECT
--- NOTE | 2016-11-09 12:06 | SOCIAL WORKER PROG NOTE PSYCH ---
See Addendum Social Work Progress Note Progress Note Will, Will's Aunt Nicolle, Andre Zacarias APRN and I met together for a family meeting. Will presents as paranoid, scared, and anxious about his current condition. His Aunt was helpful in letting us know some of the side effects that Will has been recently experiencing, such as: sweating, not eating, muscle tightening. Will also shared that he has difficulty with his thoughts. He is not able to get out what he is thinking. He feels that people are controlling his thoughts. He also believes that real people are threatening him. He is hearing their voices very clearly and they often tell him he's going to . At times he believes that his food is poisoned. He shared that there is "metallic stuff in my drinks and it helps me fiber picker a radio frequency and that's how I know what they say". Nicolle reports that he was functioning well prior to the last 4-5 months. Now it has gotten to a point where he doesn't shower and can't do anything for himself. Will was adamant that these people that are after him are real. He was upset that he doesn't think we believe him. Andre Zacarias APRN talked to him about changing Seroquel and trying Risperdone. Will is ambivalent because he doesn't think a change in medication will help with what he is experiencing. Ultimately he decided he would give it a try. Nicolle signed releases for [facility].
--- NOTE | 2016-11-09 12:34 | CP SOUTH PROGRESS NOTE PSYCH ---
Psych (Inpt) Progress Note Progress Note Progress Note: I discussed this patient's progress to date, current mental status, treatment process in the context of the treatment plan, and discharge planning with staff/ team in the daily morning inpatient team meeting. I also met with the patient myself in individual session. A total of 50 minutes was spent with the patient with more than 50% spent in counseling and/or coordination of care. SUBJECTIVE: "Somebody's putting metallic things in my drink, and that helps me hear things." OBJECTIVE: Current Medications Sig/Bijal Start time Last Medication Dose Route Stop Time Status Admin Atenolol 50 MG DAILY 11/07 1000 AC 11/09 PO 0823 Atorvastatin Calcium 40 MG 1700 11/08 1700 AC 11/08 PO 1656 Chlorpromazine 100 MG Q2 HRS NEEDED PRN 11/07 1545 DC PO Diphenhydramine HCl 50 MG ONCE PRN 11/09 1230 UNVr IM Haloperidol 5 MG ONCE PRN 11/09 1230 UNVr IM Hydrochlorothiazide 12.5 MG DAILY 11/07 1000 AC 11/09 PO 0823 Levothyroxine Sodium 0.1 MG DAILY AC 11/07 0758 AC 11/09 PO 0822 Losartan Potassium 50 MG DAILY 11/07 1000 AC 11/09 PO 0822 Methadone HCl 100 MG 8AM 11/08 0800 AC 11/09 PO 0824 Quetiapine Fumarate 200 MG 8AM 11/08 0800 DC 11/09 PO 0822 Quetiapine Fumarate 300 MG AT BEDTIME 11/07 2200 DC 11/08 PO 2104 Quetiapine Fumarate 50 MG Q2 HRS NEEDED PRN 11/07 1530 DC 11/08 PO 1231 Risperidone 1 MG 0800,11/09 1230 UNVr PO Sertraline HCl 200 MG DAILY 11/07 1000 AC 11/09 PO 0823 Topiramate 100 MG AT BEDTIME 11/07 2200 AC 11/08 PO 2105 Trazodone HCl 100 MG QPM 11/07 2200 AC 11/08 PO 2105 Vital Signs Date Time Temp Pulse Resp B/P Pulse O2 O2 Flow FiO2 Ox Delivery Rate 11/09 821 97.4 86 16 142/90 11/09 08 97.4 86 142/90 11/08 1948 98.1 64 139/74 11/08 1556 71 124/64 ASSESSMENT: I visited with the patient twice today, once in individual session, and a second time in a family meeting along with his aunt Esther, and social media content specialist Imelda. He presents as extremely paranoid, distrustful, describing multiple episodes of hearing voices and people doing things to him that cause him harm. "The physical symptoms change according to the person who is doing it." During our family meeting at one point he admitted to being frightened by the voices, and states "I can't even function." At first the patient was very reticent to change medications, however eventually agreed to change medications after his aunt reminded him that his primary care doctor, Dr. Gee, sent him to the hospital to have his medications changed. Patient was cooperative during our visits today, however nursing has complained that he is often intrusive and difficult to redirect. Denies suicidal or homicidal ideation. He endorses hearing voices "of real people, you just don't believe me." He has a wide range of delusional beliefs. Speech is well articulated, average in rate, volume and tone. The patient understands the risks/benefits/side effects of the medication and is agreeable to continue taking them. PLAN: Discontinue Thorazine and Seroquel, start risperidone for psychotic symptoms. Patient and his aunt have agreed to this treatment. Standing prn orders for patient safety has been placed for IM haldol and Benadryl to be given for dangerous agitation. Patient has been encouraged by both me and his aunt to take a shower. Continue with current management as patient is improving. Continue to provide support and encouragement.
[2016-11-09 12:36] VITALS: BP 125/63
--- NOTE | 2016-11-09 13:41 | NUR ---
PT WAS GENERALLY MORE CALM IN THE AFTERNOON. HE HAD A MEETING WITH HIS AUNT AND THEN SPENT SOME TIME VISITING WITH HER.PT DENIES SUICIDAL THOUGHTS AT THIS TIME
[2016-11-09 15:40] VITALS: BP 119/66
[2016-11-09 19:55] VITALS: BP 127/83
--- NOTE | 2016-11-09 22:01 | NUR ---
Pt is out in the community mood is stable affect is flat, vital signs are stable no complaints. Appetite is good vital signs are stable. Will continue to monitor the pt overnight.
[2016-11-10 08:00] VITALS: BP 138/81
--- NOTE | 2016-11-10 12:02 | NUR ---
PT ATTENDED ONE GROUP TODAY. HE REMAINS PARANOID AND DELUSIONAL BUT HE IS GENERALLY CALMER IN HIS MOOD. HE DENIES SUICIDAL THOUGHTS OR THOUGHTS OF SELF HARM. HE DENIES NEED TO BE IN THE HOSPITAL. HE IS ARGUMENTATIVE AT TIMES. PTS MED COMPLIANCE WAS QUESTIONED THIS MORNING AND HE WILL BE PLACED ON LIQUID MEDS IF AVAILABLE FROM PHARMACY
[2016-11-10 12:08] VITALS: BP 127/69
--- NOTE | 2016-11-10 14:37 | SOCIAL WORKER PROG NOTE PSYCH ---
See Addendum Social Work Progress Note Progress Note Will does not recall meeting me yesterday. He introduced himself to me. I asked him if he remembered meeting me yesterday? He said no. He does not believe that I sat in on the meeting with him and his Aunt yesterday. He asked why the hospital keeps playing tricks on him and keeps forcing him to speak with multiple people about the same things. I told him I was there yesterday and I tried to report back some of the things that we talked about. He didn't want to hear it. He wanted to know my role as a licensed master social worker and I explained. He looked at my hospital badge to see my name. As he did this he looked at the picture and stated it wasn't me. He did end up writing my name in his log so he could remember me. He asked what he needed to do to get out of here? I told him that the team wants him to feel safe and that when he is feeling safe and the team feels he is safe we will discuss discharge. I also talked to him about putting in a 3 day paper to terminate voluntary status and explained what that is. He didn't seem interested in pursuing that option right now. Patient is still too paranoid and psychotic to complete a social history. Will's Aunt Nicolle called back and left a message stating that she did not have a court document indicating a decree for conservatorship and that she was trying to call the Data Processing Manager that wrote the document for her about the healthcare decisions. She also left another message indicating that the court hearing that was going to be held in [place] was for involuntary committment. She said [facility] released him though 2 days before the hearing. I called her back and left a message that the hearing she was referring to is not for conservatorship and she should speak with her carver hand. I also provided a brief update and told her she could call me back for more information.
--- NOTE | 2016-11-10 14:58 | CP SOUTH PROGRESS NOTE PSYCH ---
Psych (Inpt) Progress Note Progress Note Progress Note: I discussed this patient's progress to date, current mental status, treatment process in the context of the treatment plan, and discharge planning with staff/ team in the daily morning inpatient team meeting. I also met with the patient myself in individual session. A total of 25 minutes was spent with the patient with more than 50% spent in counseling and/or coordination of care. OBJECTIVE: Current Medications Sig/Bijal Start time Last Medication Dose Route Stop Time Status Admin Atenolol 50 MG DAILY 11/07 1000 AC 11/10 PO 0801 Atorvastatin Calcium 40 MG 1700 11/08 1700 AC 11/09 PO 1635 Diphenhydramine HCl 50 MG ONCE PRN 11/09 1230 AC IM Haloperidol 5 MG ONCE PRN 11/09 1230 AC IM Hydrochlorothiazide 12.5 MG DAILY 11/07 1000 AC 11/09 PO 0823 Hydroxyzine HCl 50 MG Q4 HRS NEEDED PRN 11/09 1645 AC 11/09 PO 1753 Levothyroxine Sodium 0.1 MG DAILY AC 11/07 0758 AC 11/10 PO 0708 Losartan Potassium 50 MG DAILY 11/07 1000 AC 11/10 PO 0801 Methadone HCl 100 MG 8AM 11/08 0800 AC 11/10 PO 0801 Risperidone 2 MG 0800,11/10 2000 AC PO Risperidone 1 MG ONCE ONE 11/10 1030 DC 11/10 PO 11/10 1031 1124 Risperidone 1 MG 0800,11/09 1230 DC 11/10 PO 0801 Topiramate 100 MG AT BEDTIME 11/07 2200 AC 11/09 PO 2149 Trazodone HCl 100 MG QPM 11/07 2200 AC 11/09 PO 2149 Vital Signs Date Time Temp Pulse Resp B/P Pulse O2 O2 Flow FiO2 Ox Delivery Rate 11/10 1208 63 127/69 11/10 0801 77 138/81 11/10 0800 96.7 77 138/81 11/09 1955 97.6 72 127/83 11/09 1540 71 119/66 ASSESSMENT: I met with the patient twice today, once in individual session, and a second time along with nursing supervisor painting Kira. The patient continues to exhibit paranoid, delusional thoughts, with auditory hallucinations. He has poor insight, believing that the voices he is hearing are real voices and not hallucinations, which he is hearing via the transmitters in his mouth, his dentures, and through "metallic pieces" which are being put in his food and drink. He is however, agreeing to take medications. He appears somewhat more calm and cooperative than yesterday. At the time of this writing, he has not agreed to sign disclosure wavers in order to speak with other medical providers who treated him in the past. There was some concern this morning by nursing staff, that the patient had been cheeking his medications and spitting them out. Kira and I spoke to him about this, and offered liquid medications. He agreed instead to mouth checks, and to spend five supervised minutes at the nursing station after taking PO medications. Speech is well articulated, average in rate, volume and tone. The patient understands the risks/benefits/side effects of the medication and is agreeable to continue taking them. PLAN: Risperidone 2 mg twice daily. Continue with current management as patient is improving. Continue to provide support and encouragement.
[2016-11-10 16:15] VITALS: BP 106/60
[2016-11-10 19:33] VITALS: BP 148/90
--- NOTE | 2016-11-10 21:31 | NUR ---
PT IS VISIBLE ON UNIT, MOSTLY STAYING TO HIMSELF. MINIMAL INTERACTION WITH PEERS. HAD VISIT FROM AUNT WHO BROUGHT HIM CLOTHES. REFUSED WRAP UP MEETING. NO COMPLAINTS OR SI REPORTED. PT HAS A STABLE MOOD AND CONSTRICTED AFFECT.
[2016-11-11 07:44] VITALS: BP 149/80
--- NOTE | 2016-11-11 11:22 | SOCIAL WORKER PROG NOTE PSYCH ---
Social Work Progress Note Progress Note Will's Aunt Nicolle called and left a message stating that she spoke with her transactional attorney and he stated that he doesn't feel that he requires a conservator right now. Bladimir Henriquez [facility] attempted to do Will's social hx today, but Will declined due to not feeling comfortable. Will was pleasant in talking with me today, although he still believes I am someone else named Uma. Apparently this was a past girl friend. He talked about wanting to leave the hospital and if I was going to help him with that and figure out a plan. I told him that our goal is to help him feel safe enough to leave and get back to the life that he was living. I talked to him again about the 3 day paper and showed him the paper. He declined stating he would wait for the team to decide he was ready. I thanked him for working with us. He talked about wanting to have his bedroom moved due to the noise above and that there was electricity coming down into the room, due to the work upstairs. I told him that I would advocate with nursing to have his room moved. He denied feeling safe today due to the room issue. I asked if he was hearing people talking today. He chose not to answer and stated "I'm trying to get out of here". I told him that it's ok to let us know and it's not something that's going to keep him here. I again reiterated our goal of helping him feel safe to function and move on with his life.
[2016-11-11 12:28] VITALS: BP 138/79
--- NOTE | 2016-11-11 13:27 | CP SOUTH PROGRESS NOTE PSYCH ---
Psych (Inpt) Progress Note Progress Note Progress Note: I discussed this patient's progress to date, current mental status, treatment process in the context of the treatment plan, and discharge planning with staff/ team in the daily morning inpatient team meeting. I also met with the patient myself in individual session. A total of 15 minutes was spent with the patient with more than 50% spent in counseling and/or coordination of care. OBJECTIVE: Current Medications Sig/Bijal Start time Last Medication Dose Route Stop Time Status Admin Atenolol 50 MG DAILY 11/07 1000 AC 11/11 PO 0747 Atorvastatin Calcium 40 MG 1700 11/08 1700 AC 11/10 PO 1739 Diphenhydramine HCl 50 MG ONCE PRN 11/09 1230 AC IM Haloperidol 5 MG ONCE PRN 11/09 1230 AC IM Hydrochlorothiazide 12.5 MG DAILY 11/07 1000 AC 11/11 PO 0747 Hydroxyzine HCl 50 MG Q4 HRS NEEDED PRN 11/09 1645 AC 11/09 PO 1753 Levothyroxine Sodium 0.1 MG DAILY AC 11/07 0758 AC 11/11 PO 0701 Losartan Potassium 50 MG DAILY 11/07 1000 AC 11/11 PO 0747 Methadone HCl 100 MG 8AM 11/08 0800 AC 11/11 PO 0746 Risperidone 2 MG 0800,11/10 2000 AC 11/11 PO 0747 Topiramate 100 MG AT BEDTIME 11/07 2199 AC 11/10 PO 2136 Trazodone HCl 100 MG QPM 11/07 2200 AC 11/10 PO 2136 Vital Signs Date Time Temp Pulse Resp B/P Pulse O2 O2 Flow FiO2 Ox Delivery Rate 11/11 1228 64 138/79 11/11 0747 78 149/80 11/11 0744 97.5 78 149/80 11/10 1933 97.2 66 148/90 11/10 1615 77 106/60 ASSESSMENT: This morning the patient presented with a smile, and although insistent, was pleasant. His mood and appearance appears improved since yesterday. He continues to have hallucinations and delusional thoughts. As per nursing report he has been taking his medications as prescribed, and has been less intrusive on the unit. This morning he reports that he has not been hearing the voices which he usually hears. He continues to have delusional thoughts that people whom he cannot identify are tampering with his health. He believes that people are putting "metallic" particles in his food. He stated that he believes that his social research assistant is his ex-girlfriend (not true, as per the social research assistant.) I received a voice mail message from his aunt Esther which was left late last night. She was here to visit last night, and states that the patient had told her that he is hearing the voices of certain people whom he has not seen in many many years, some [employer] classmates, and it was implausible that he has been in contact with them recently. Depression:0/10; Anxiety:0/10 (with 10 the worst.) Denies suicidal ideation, homicidal ideation, visual hallucinations. Patient denies having auditory hallucinations or having paranoid thoughts, although it is very clear that he is both having auditory hallucinations and is having paranoid delusions. Speech is well articulated, average in rate, volume and tone. He reports that he slept intermittently last night because of construction noise in his room. His appetite is excellent. The patient understands the risks/benefits/side effects of the medication and is agreeable to continue taking them. PLAN: Continue with current management as patient is improving. Continue to provide support and encouragement.
--- NOTE | 2016-11-11 14:15 | NUR ---
PT IS OUT IN COMMUNITY INTERACTING MORE WITH STAFF AND PEERS. PT WILL ENGAGE WITH PEERS IN THE COMMUNITY FOR CONVERSATIONS. PT IS NOT ATTENDED GROUPS. PT HAS NOT TALKED ABOUT ANY VOICES OR OFFER COMPLIANTS ABOUT NOISE IN ROOM. PT MOOD IS STABLE WITH A CONSTRICTED AFFECT. PT DOES NOT SHOW ANY PARANOID BEHAVIOR THIS SHIFT. PT DID NOT NEED ANY REDIRECTION WITH ANY BEHVIORS. PT DENIES SI THOUGHTS
[2016-11-11 15:55] VITALS: BP 152/73
--- NOTE | 2016-11-11 16:34 | SOCIAL WORKER PROG NOTE PSYCH ---
Social Work Progress Note Progress Note patient agreed to particiopate in social history, but after 3rd question he said he could not continue Could not complete
[2016-11-11 20:05] VITALS: BP 145/87
--- NOTE | 2016-11-11 23:12 | NUR ---
PT IS VISIBLE ON UNIT BUT MOSTLY STAYS TO HIMSELF AND HAS MINIMAL INTERACTION WITH PEERS AND STAFF. PT APPEARS PARANOID AT TIMES, PEEKING OUT FROM ROOM AND WATCHING NURSE'S STATION FROM [employer]. COOPERATIVE AND COMPLIANT WITH STAFF. NO COMPLAINTS OR SI REPORTED. PT HAS A CONSTRICTED MOOD AND FLAT AFFECT.
--- NOTE | 2016-11-12 05:55 | NUR ---
PT LESS VIGILANT ON EVENINGS. NO OVERTLY PARANOID BEHAVIORS EXHIBITED. PT APPEARED TO SLEEP.
[2016-11-12 07:28] VITALS: BP 145/95
--- NOTE | 2016-11-12 11:21 | SOCIAL WORKER PROG NOTE PSYCH ---
Social Work Progress Note Progress Note Andre Zacarias APRN and I met with Will together. Will said that he tried to talk to nursing about the releases last night, but no one knew what he was talking about. I got the releases from the chart and brought them in. He continued to feel very cautious about signing them and for what purposes. It was explained that his doctor's and treatment providers should talk to eachother to provide the best care for him. He eventually signed both. He was focused on telling us that he had several different topics to discuss and only wanted to discuss it with individual people. He thought it was odd that Andre and I were both meeting with him together. Explained that this is usual practice. He is pleased that his room changed, but then stated that he is still being bothered by the threats. He wouldn't elaborate on who was threatening him. He talked about wanting to shower and shave and couldn't understand why he couldn't do that. Andre explained that he certainly could shower anytime he needed to, but we would need to discuss the shaving with nursing. He seemed agitated at the end of the discussion because he feels he is cooperating and doing everything he is supposed to be doing. He got up and walked out. Release and request for records at [facility] was faxed. Records received.
[2016-11-12 12:31] VITALS: BP 115/66
--- NOTE | 2016-11-12 12:42 | CP SOUTH PROGRESS NOTE PSYCH ---
Psych (Inpt) Progress Note Progress Note Progress Note: I discussed this patient's progress to date, current mental status, treatment process in the context of the treatment plan, and discharge planning with staff/ team in the daily morning inpatient team meeting. I also met with the patient myself in individual session. A total of 25 minutes was spent with the patient with more than 50% spent in counseling and/or coordination of care. SUBJECTIVE: "I'm still being threatened by people upstairs." OBJECTIVE: Current Medications Sig/Bijal Start time Last Medication Dose Route Stop Time Status Admin Atenolol 50 MG DAILY 11/07 1000 AC 11/12 PO 0744 Atorvastatin Calcium 40 MG 1700 11/08 1700 AC 11/11 PO 1632 Diphenhydramine HCl 50 MG ONCE PRN 11/09 1230 AC IM Haloperidol 5 MG ONCE PRN 11/09 1230 AC IM Hydrochlorothiazide 12.5 MG DAILY 11/07 1000 AC 11/12 PO 0744 Hydroxyzine HCl 50 MG .STK-MED ONE 11/11 1934 DC PO 11/11 1935 Hydroxyzine HCl 50 MG Q4 HRS NEEDED PRN 11/09 1645 AC 11/11 PO 1939 Levothyroxine Sodium 0.1 MG DAILY AC 11/07 0758 AC 11/12 PO 0631 Losartan Potassium 50 MG DAILY 11/07 1000 AC 11/12 PO 0744 Methadone HCl 100 MG 8AM 11/08 0800 AC 11/12 PO 0742 Risperidone 2 MG 0800,11/10 2000 AC 11/12 PO 0744 Topiramate 100 MG AT BEDTIME 11/07 220 AC 11/11 PO 2310 Trazodone HCl 100 MG QPM 11/07 2200 AC 11/11 PO 2310 Vital Signs Date Time Temp Pulse Resp B/P Pulse O2 O2 Flow FiO2 Ox Delivery Rate 11/12 1231 78 115/66 11/12 07 97.6 78 16 145/95 11/12 727 97.6 78 145/95 11/11 2004 98.2 70 145/87 11/11 1555 58 152/73 ASSESSMENT: Today I met the patient along with transition social worker Imelda. Patient appears somewhat more organized today, he agreed today to sign disclosure wavers for [facility] and [facility]. He continues to act in an extremely paranoid fashion, and continues to have paranoid delusions that people, whom he cannot identify, are interfering with his health. He feels that his security is threatened by these people. When asked today if he was hearing those people's voices today, he did not answer. Denies suicidal ideation, homicidal ideation, auditory hallucinations, visual hallucinations, paranoid ideation. Although the patient denies these symptoms, he continues to exhibit paranoid and hypervigilant behavior, and paranoid delusions. It is unclear if auditory hallucinations continue today. Speech is well articulated, goal-directed, average in rate, volume and tone. Records from [facility] have been received, reviewed, and placed in patient's chart.. The patient understands the risks/benefits/side effects of the medication and is agreeable to continue taking them. PLAN: Slow progress. Patient continues to be in need of inpatient hospitalization. Increase risperidone to 2 mg in the morning and 3 mg at bedtime, for continuing psychotic symptoms. Continue with other current management as patient is improving. Continue to provide support and encouragement.
--- NOTE | 2016-11-12 13:24 | NUR ---
PT IS ALERT AND ORIENTED X3. LESS INTRUSIVE TODAY THAN PREVIOUS SHIFTS. PT KEEPS ASKING TO SHAVE DESPITE BEING TOLD HE WILL BE ABLE TO ONCE STAFF HAS A MOMENT TO OBSERVE. COMPLIANT WITH VS/LUNCH. PT DID NOT DISPLAY ANY SIGNS OF PARANOIA TO THIS MHW. VS ARE STABLE AND DENIES ANY SI/HI TO THIS MHW.
[2016-11-12 15:40] VITALS: BP 144/75
[2016-11-12 19:50] VITALS: BP 130/85
--- NOTE | 2016-11-12 21:21 | NUR ---
PT IS STABLE WITH FLAT AFFECT. MORE ORGANIZED IN THOUGHT TODAY THAN PREVIOUSLY. PRESENT WITHIN THE [place] WITH MINIMAL INTERACTION WITH PEERS/STAFF. PT SHAVED HIS FACE TODAY WITHOUT INCIDENT. CURRENTLY WATCHING TV IN THE LOUNGE QUIETLY BY HIMSELF. ATTENDING GROUPS. VS ARE STABLE AND DENIES ANY SI/HI TO THIS MHW.
--- NOTE | 2016-11-13 05:50 | NUR ---
PT APPEARED TO SLEEP THRU THE NIGHT. PT VERBALIZED SOME PARANOID, DELUSIONAL CONTENT REGARDING THREATS FROM "PEOPLE ABOVE US" WHEN SISTER VISITED ON EVENINGS. PT C RED RASH AROUND BOTHE EYES.
[2016-11-13 07:53] VITALS: BP 137/78
--- NOTE | 2016-11-13 10:47 | CP SOUTH PROGRESS NOTE PSYCH ---
Psych (Inpt) Progress Note Progress Note Include the following elements, when applicable: Involvement in the active treatment of the patient with behavioral observations of the patient and the patient's response to the treatment. Review of the ongoing treatment process in the context of the treatment plan. Indication of how multi-disciplinary staff members are carrying out the treatment plan. Plans for future interventions and recommendations for revision of the treatment plan. Liaison with other physicians/providers. Progress Note: Pt reports mood "up and down": but less so than previously. His main concerns are two fold, a) constipation, and b) men working above him at night that may or may not be watching him. As to constipation, agreed to take senna and colace daily with Miralax PRN. As to second concern, there was previously construction above patient but has since ceased. Pt feels that paranoia "feeling that people are watching him" are at baseline but are distressing to him. He feels slightly better since risperidone increased. Denies SI or HI. Current Medications Sig/Bijal Start time Last Medication Dose Route Stop Time Status Admin Atenolol 50 MG DAILY 11/07 1000 AC 11/13 PO 0913 Atorvastatin Calcium 40 MG 1700 11/08 1700 AC 11/12 PO 1628 Diphenhydramine HCl 50 MG ONCE PRN 11/09 1230 AC IM Docusate Sodium 100 MG BID 11/13 1012 AC PO Haloperidol 5 MG ONCE PRN 11/09 1230 AC IM Hydrochlorothiazide 12.5 MG DAILY 11/07 1000 AC 11/13 PO 0913 Hydroxyzine HCl 50 MG .STK-MED ONE 11/12 1624 DC PO 11/12 1625 Hydroxyzine HCl 50 MG Q4 HRS NEEDED PRN 11/09 1645 AC 11/12 PO 1630 Levothyroxine Sodium 0.1 MG DAILY AC 11/07 0758 AC 11/13 PO 0621 Losartan Potassium 50 MG DAILY 11/07 1000 AC 11/13 PO 0912 Methadone HCl 100 MG 8AM 11/08 0800 AC 11/13 PO 0913 Polyethylene Glycol 17 GM DAILY NEEDED PRN 11/13 1015 AC PO Risperidone 2 MG 0800 11/13 0800 AC 11/13 PO 0911 Risperidone 3 MG AT BEDTIME 11/12 2200 AC 11/12 PO 2145 Risperidone 2 MG 799,11/10 DC 11/12 PO 0744 Senna 187 MG AT BEDTIME 11/13 2199 AC PO Topiramate 100 MG AT BEDTIME 11/07 2199 AC 11/12 PO 2144 Trazodone HCl 100 MG QPM 11/07 2199 AC 11/12 PO 2144 Vital Signs Date Time Temp Pulse Resp B/P Pulse O2 O2 Flow FiO2 Ox Delivery Rate 11/13 0912 98.0 94 16 137/78 11/13 0753 98.0 94 137/78 11/12 1950 98.5 78 130/85 11/12 1540 70 144/75 11/12 1231 78 115/66 MSE Appears as stated age. Cooperative behavior, good, appropriate eye contact. Nl speech rate and prosody. No psychomotor retardation or agitation. Mood "I need to go to the bathroom, fine" Affect concerned about being watched, constricted, appropriate, non-liable. Linear and goal directed thought process. Denies SI or HI. Does not appear to be responding to internal stimuli. Denies AVHs, ++ paranoia, ++delusions. I/J: limited A/P: Pt with hx of pSZP with improved psychotic sx with titration of risperidone though still present also with constipation. - Continue current medication regimen - Added senna, colace, and miralax to help with constipation - Awaiting meeting with conservators to determine dispo
--- NOTE | 2016-11-13 12:08 | NUR ---
Patient is A&O X 3, compliant with medication but unable to handle group therapies/activies. vital sign is stable and at acceptable range, report good night sleep and appetite. Mood is stable with appropriate affect has not displayed any bahavioral disturbance or psychotic feature, denies thought of self harm and to someone else.
[2016-11-13 12:18] VITALS: BP 110/65
[2016-11-13 16:16] VITALS: BP 144/76
[2016-11-13 19:39] VITALS: BP 141/83
[2016-11-14 08:09] VITALS: BP 155/76
[2016-11-14 12:13] VITALS: BP 114/51
--- NOTE | 2016-11-14 12:13 | CP SOUTH PROGRESS NOTE PSYCH ---
Psych (Inpt) Progress Note Progress Note Include the following elements, when applicable: Involvement in the active treatment of the patient with behavioral observations of the patient and the patient's response to the treatment. Review of the ongoing treatment process in the context of the treatment plan. Indication of how multi-disciplinary staff members are carrying out the treatment plan. Plans for future interventions and recommendations for revision of the treatment plan. Liaison with other physicians/providers. Progress Note: Pt seen in bed initally. He was laying down but not sleeping. Remains paranoid around people watching him at night and something happening above him. Later in the day, less so and out of room. Denies SI or HI. Current Medications Sig/Bijal Start time Last Medication Dose Route Stop Time Status Admin Atenolol 50 MG DAILY 11/07 1000 AC 11/14 PO 09 Atorvastatin Calcium 40 MG 1700 11/08 1700 AC 11/13 PO 1741 Diphenhydramine HCl 50 MG ONCE PRN 11/09 1230 AC IM Docusate Sodium 100 MG BID 11/13 1012 AC 11/14 PO 0913 Haloperidol 5 MG ONCE PRN 11/09 1230 AC IM Hydrochlorothiazide 12.5 MG DAILY 11/07 1000 AC 11/14 PO 0913 Hydroxyzine HCl 50 MG .STK-MED ONE 11/13 1912 DC PO 11/13 191 Hydroxyzine HCl 50 MG Q4 HRS NEEDED PRN 11/09 1645 AC 11/13 PO 1917 Levothyroxine Sodium 0.1 MG DAILY AC 11/07 0758 AC 11/14 PO 0715 Losartan Potassium 50 MG DAILY 11/07 1000 AC 11/14 PO 0912 Methadone HCl 100 MG 8AM 11/08 0800 AC 11/14 PO 0920 Polyethylene Glycol 17 GM DAILY NEEDED PRN 11/13 1015 AC PO Risperidone 2 MG 0811/13 0800 AC 11/14 PO 0913 Risperidone 3 MG AT BEDTIME 11/12 2199 AC 11/13 PO 2127 Senna 187 MG AT BEDTIME 11/13 2199 AC 11/13 PO 2127 Topiramate 100 MG AT BEDTIME 11/07 2200 AC 11/13 PO 212 Trazodone HCl 100 MG QPM 11/07 2199 AC 11/13 PO 2128 Vital Signs Date Time Temp Pulse Resp B/P Pulse O2 O2 Flow FiO2 Ox Delivery Rate 02/26 0912 96.8 87 16 155/76 11/14 0809 96.8 87 155/76 11/13 1939 98.6 80 141/83 11/13 1616 73 144/76 11/13 1218 71 110/65 MSE Appears as stated age. Cooperative behavior, good, appropriate eye contact. Nl speech rate and prosody. No psychomotor retardation or agitation. Mood OK OK Affect slightly bizzare constricted, appropriate, non-liable. Linear and goal directed thought process. Denies SI or HI. Does not appear to be responding to internal stimuli. Denies AVHs but ++ paranoia and ++delusions around people watching him at night. 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 - Increase risperidone from 2mg daily and 3mg qhs to 3mg BID, will monitor for EPS, pt denies now - Continue current medication regimen
--- NOTE | 2016-11-14 14:09 | NUR ---
PT IS COMPLIANT AND COOPERATIVE. MOOD IS STABLE WITH A FLAT AFFECT. PT DENIES SI AT THIS TIME, NO COMPLAINTS OFFERED. PT DOES NOT PRESENT PARANOID- NO ACTIVE PSYCHOSIS NOTED. PT APPEARS SLIGHTLY GUARDED TOWARDS OTHERS. PT TENDS TO BE WITHDRAWN AND ISOLATIVE IN BED DURING DAY. PT HAS SOME INTERACTION WITH PEERS AND STAFF WHEN PRESENT ON UNIT. PT ATTEDNED ONE GROUP TODAY. VITALS ARE STABLE, APPETITE IS GOOD.
[2016-11-14 16:21] VITALS: BP 118/70
[2016-11-14 19:50] VITALS: BP 140/78
--- NOTE | 2016-11-14 22:48 | NUR ---
PT IS CALM, COOPERATIVE WITH STAFF AND PEERS, AND COMPLIANT WITH UNIT RULES. PT ENGAGES IN PACING AROUND UNIT OFTEN, MOSTLY STAYING TO SLEF, ISOLATIVE AND WITHDRAWN, BUT WILL AT TIMES INTERACT WITH OTHERS. PT MOOD IS STABLE, AFFECT IS SLIGHTLY FLAT AND CONSTRICTED, APPEARING AT TIMES CLOSER TO FULL RANGE. COMMUNICATION IS NORMAL AND APPETITE IS NORMAL. PT DENIES SI AT THIS TIME.
[2016-11-15 07:50] VITALS: BP 152/83
--- NOTE | 2016-11-15 10:10 | SOCIAL WORKER SOCIAL HX PSYCH ---
Social History Basic Assessment Insurance Authorization: Insurance #1: Insurance name: [employer] Phone number: Policy number: [id number] Group number: Authorization number: Curr Source of Income/Entitlements[facility] Primary Care Physician: Patient's PCP: LORI VIDALES MD PCP's Primary Language? Bolivian Language(s) Spoken At Home: [place] Living Situation Rents or Owns Home? owns Feel Safe Where You Are Living Yes Feel Safe in Relationships? Yes Allergies - Coded Allergies: No Known Allergies (11/06/16) Current Medications - Scheduled Medications Atenolol 50 MG TABLET 1 TAB PO DAILY HEART #30 (Reported) Entered as Reported by BRENT KUMAR on 11/06/16 1543 Atorvastatin Calcium 40 MG TABLET 1 TAB PO DAILY CHOLESTEROL #30 (Reported) Entered as Reported by BRENT KUMAR on 11/06/16 1541 Hydrochlorothiazide 12.5 MG CAPSULE 1 CAP PO DAILY WATER PILL #30 (Reported) Entered as Reported by BRENT KUMAR on 11/06/16 1543 Levothyroxine Sodium 100 MCG TABLET 1 TAB PO DAILY AC THYROID #30 (Reported) Entered as Reported by BRENT KUMAR on 11/06/16 1543 Losartan Potassium 50 MG TABLET 1 TAB PO DAILY HEART #30 (Reported) Entered as Reported by BRENT KUMAR on 11/06/16 1540 Methadone HCl 10 MG/ML ORAL.CONC 100 MG PO DAILY RECOVERY (Reported) Entered as Reported by BRENT KUMAR on 11/06/16 1540 Quetiapine Fumarate 300 MG TABLET 1 TAB PO BID MENTAL HEALTH #60 (Reported) Entered as Reported by BRENT KUMAR on 11/06/16 1541 Ropinirole HCl (Requip) 2 MG TABLET 1 TAB PO QPM UNKNOWN #30 (Reported) Entered as Reported by BRENT KUMAR on 11/06/16 1542 Sertraline HCl 100 MG TABLET 2 TAB PO DAILY MENTAL HEALTH #60 (Reported) Entered as Reported by BRENT KUMAR on 11/06/16 1541 Topiramate 100 MG TABLET 1 TAB PO QPM UNKNOWN #30 (Reported) Entered as Reported by BRENT KUMAR on 11/06/16 1543 Trazodone HCl 100 MG TABLET 1 TAB PO QPM MENTAL HEALTH #30 (Reported) Entered as Reported by BRENT KUMAR on 11/06/16 1542 Past History Past Medical History Neurological: NONE EENT: NONE Cardiovascular: hypertension, hyperlipidemia Respiratory: NONE Gastrointestinal: NONE Hepatic: NONE Renal: NONE Musculoskeletal: NONE Psychiatric: anxiety, depression Endocrine: hypothyroidism Blood Disorders: NONE Cancer(s): NONE Past Surgical History Surgical History: unobtainable /Family History Place/Country of Origin: [facility] Childhood Family Constellation: Mother, Father and Brother Primary Childhood Caretakers: father, mother Family Life During Childhood: great DCF Involvement? No Relationship w/Mother: she 10 years ago, he reports they had a very good relationship Relationship w/Father: he 5 years ago, and he reports they had a good relationship Any Sibling(s)? Yes Sibling's Gender(s)/Age(s): male Sibling 1: Relationship w/Sibling(s): his only brother at 18 year of age Abuse/Trauma History Trauma History/Current Trauma: Denies Legal History Current Legal Status: none Have you ever been arrested No Number of Arrests: 0 Psychosocial History Strengths/Capabilities: Pt owns a condo/supportive family Psychiatric Treatment History Psych Treatment Inpatient Treatment Yes Outpatient Treatment Yes Location of Treatment [facility], [facility], [facility] Reason for Treatment Hx of anxiety, opiod dependence, psychotic d/o nos Dates of Treatment [facility] at [facility] 2005, [facility] 2006, [place] Oct 2016 Response to Treatment recent increased auditory paranoid hallucinations. Believes people want to kills him; believes a chip has been put in his ear or roof of his mouth Risk Factors: chronic/serious med cond., high anxiety/distress, SA/MH hospitalized, substance abuse, lives alone, male Substance Use/Abuse History Drug Use/Abuse Substance Used/Abused Prescribed Opiates Last Used today How much used/taken 100mg How often daily For how long past 10 yrs Route of use oral Symptoms of Use: methadone maintenance Substance Abuse Treatment Substance Abuse Treatment Inpatient Treatment Yes Outpatient Treatment Yes Location of Treatment [facility]; [facility] Reason for Treatment polysubstance abuse; opiod dependence Dates of Treatment since 2005 Response to Treatment no street drugs or etoh in a few yrs Education History Highest Level of Education: high school/GED Preferred Learning Style: visual, auditory, experiential Current Mental Status Mental Status Orientation: Person, Place, Situation Affect: Anxious, Depressed Speech: WNL Neuro-vegetative: Appetite Decreased, Concentration Poor, Energy Decreased, Helpless, Loss of Interest, Sleep Disturbance Appearance Appearance- Dress/Hygiene: hospital scrubs. sitting upright on end of bed. good eye contact. Behaviors Thought Process: Flight of Ideas, Irrational Thought Content: Auditory Hallucinations, Delusions, Paranoid Memory: Impaired Insight: Fair SI/HI Risk Assessment Past Suicidal Ideation/Attempts No Current Suicidal Ideation/Att No Past Homicidal Ideation/Att: No Current Homicidal Ideation/Attempts No Degree of Intent: None Lethality Ratin - Conclusion and Recommendations for treatment - and discharge planning
--- NOTE | 2016-11-15 10:13 | SOCIAL WORKER PROG NOTE PSYCH ---
Social Work Progress Note Progress Note pt was agreeable to sit with me, and answer the psyhosocial evaluation questions , he got through some of it, before requesting tos top talking. "I dont want to talk anymore". I thanked him for the time and stated I appreciated him trying he covered his face and said "ok", and then repeated "I dont want to talk anymore". Pt got through about 10 questions of the eval, this is documented, but the evaluation is not completed.
[2016-11-15 12:31] VITALS: BP 111/75
--- NOTE | 2016-11-15 13:42 | NUR ---
PT VISIBLE IN THE [place] MOST OF THE DAY. HE ATTENDED PLANNING MEETING THIS MORNING BUT LEFT EARLY. IN THE [place] PT HAS SOME INTERACTIONS WITH PEERS AND STAFF ALIKE. HE HAS BEEN A LOT BETTER THAN WHAT HE WAS LIKE WHEN HE WAS FIRST ADMITTED. WHEN ASKED PT DENIES HAVING THOUGHTS TO HURT HIMSELF.
[2016-11-15 15:50] VITALS: BP 148/74
--- NOTE | 2016-11-15 16:57 | SOCIAL WORKER PROG NOTE PSYCH ---
Social Work Progress Note Progress Note Will seems to be improving. Showered this afternoon and then came to my office to talk. He was happy to hear that he could possibly be leaving later this week. He told me that he was very thankful that his room had changed and that it has been much better for him. He seems to feel safer. Asked if he was still feeling threatened by people? He said that that has improved, but he wasn't sure what would happen when he returns home. He doesn't think that the meds are the complete answer to his issue. He talked about returning home and getting back to life and getting back to his responsibilities. Aunt Nicolle called for an update. I called her and left a message updating her on his improvements.
--- NOTE | 2016-11-15 17:50 | CP SOUTH PROGRESS NOTE PSYCH ---
Psych (Inpt) Progress Note Progress Note Progress Note: I discussed this patient's progress to date, current mental status, treatment process in the context of the treatment plan, and discharge planning with staff/ team in the daily morning inpatient team meeting. I also met with the patient myself in individual session. A total of 15 minutes was spent with the patient with more than 50% spent in counseling and/or coordination of care. SUBJECTIVE: "All of this is misunderstood." OBJECTIVE: Current Medications Sig/Bijal Start time Last Medication Dose Route Stop Time Status Admin Atenolol 50 MG DAILY 11/07 1000 AC 11/15 PO 0917 Atorvastatin Calcium 40 MG 1700 11/08 1700 AC 11/14 PO 1613 Diphenhydramine HCl 50 MG ONCE PRN 11/09 1230 AC IM Docusate Sodium 100 MG BID 11/13 1012 AC 11/14 PO 2117 Haloperidol 5 MG ONCE PRN 11/09 1230 AC IM Hydrochlorothiazide 12.5 MG DAILY 11/07 1000 AC 11/15 PO 0917 Hydroxyzine HCl 50 MG .ST-MED ONE 11/14 2007 DC PO 11/14 2009 Hydroxyzine HCl 50 MG Q4 HRS NEEDED PRN 11/09 1645 AC 11/15 PO 0940 Levothyroxine Sodium 0.1 MG DAILY AC 11/07 0758 AC 11/15 PO 0715 Losartan Potassium 50 MG DAILY 11/07 1000 AC 11/15 PO 0916 Methadone HCl 100 MG 8AM 11/16 0800 AC PO Methadone HCl 100 MG 8AM 11/08 0800 DC 11/15 PO 1009 Polyethylene Glycol 17 GM DAILY NEEDED PRN 11/13 1015 AC PO Risperidone 3 MG BID 11/14 220 AC 11/15 PO 0917 Senna 187 MG AT BEDTIME 11/13 220 AC 11/14 PO 211 Topiramate 100 MG AT BEDTIME 11/07 220 AC 11/14 PO 2117 Trazodone HCl 100 MG QPM 11/07 2199 AC 11/14 PO 2116 Vital Signs Date Time Temp Pulse Resp B/P Pulse O2 O2 Flow FiO2 Ox Delivery Rate 11/15 1550 93 148/74 11/15 1231 76 111/75 11/15 0916 97 152/83 11/15 0750 97.7 97 152/83 11/14 1950 97.5 74 140/78 ASSESSMENT: Patient presents today as calm and cooperative. When asked if he is hearing voices, he stated that he has not heard voices recently, however when he does hear it, it's real. He asks questions today about his medications, states that he is having some anxiety about the change to risperidone from his other medications. He asked when he would be discharged, I told him perhaps on , and he accepted this information well. We reviewed the risks, benefits and side effects of starting a long-acting injectable, perhaps Risperdal Consta. Patient asked appropriate questions, and stated that he would consider this option, although at this time he is inclined to say no. Depression:0/10; Anxiety:0/10 (with 10 the worst.) Denies suicidal ideation, homicidal ideation, auditory hallucinations, visual hallucinations, paranoid ideation. Although he denies paranoid ideation, he still seems to be somewhat paranoid, however improving. States he has not heard voices in the past few days. States that he slept well last night. His appetite is good. Speech is well articulated, goal-directed, average in rate, volume and tone. Calm and cooperative today. Alert and oriented 3 The patient understands the risks/benefits/side effects of the medication and is agreeable to continue taking them. PLAN: Continue with current management as patient is improving. Continue to provide support and encouragement.
[2016-11-15 19:40] VITALS: BP 95/74
--- NOTE | 2016-11-15 21:06 | NUR ---
PT IS CALM, COOPERATIVE WITH STAFF AND PEERS, AND COMPLIANT WITH UNIT RULES. PT IS SPENDING THE MAJORITY OF TIME IN [place], INTERACTING WELL WITH OTHERS. MOOD IS STABLE, AFFECT IS SLIGHTLY CONSTRICTED TO FULL RNAGE, COMMUNICATION IS NORMAL, AND APPETITE IS NORMAL. PT DENIES SI AT THIS TIME.
--- NOTE | 2016-11-16 04:39 | NUR ---
PT APPEARED TO SLEEP THRU THE NGHT. NO PRNs.
[2016-11-16 08:09] VITALS: BP 137/74
--- NOTE | 2016-11-16 08:54 | SOCIAL WORKER PROG NOTE PSYCH ---
Social Work Progress Note Progress Note Called Will's clinician Guerline Padilla at [facility] [phone]. Left a voicemail. Received a call back from Guerline Padilla. Guerline stated that she has been working with Will for a few years. She said that he has been very functional up until the last few months. She did report that he has had "unusual thoughts". Talks about neighborhood kids whispering to him. She said he has always had brief/ fleeting thoughts about people/ things that seem to pass and now the thoughts have been more instrusive and threatening in nature. She is concerned that he won't stay on his med regime once he leaves the hospital. She is happy to give an appt. for him to see her and stated I should call her back when I know when his discharge will be. Received a call from Will's Aunt Nicolle who wanted an update. Her impression is that Will is telling us what we want to hear so that he can leave the hospital. She said that last night they spoke on the phone and they had a "disagreement" about the medications. He is telling her that he wants to go off the meds being prescribed here when he leaves and is reporting that he will just start taking the Seroquel again. She doesn't want him to be able to access the Seroquel if there is a script at the pharmacy. I asked her if she would like to come in to join us in talking to Will together tomorrow? She will come in for 10:30am. Guerline Padilla called again to brainstorm different ideas about services in the community. She is concerned that he has been needing a higher level of care than [facility] can offer. She mentioned referring to [facility] so he can be on the ACT team and mentioned [facility] services. I told her that I would explore some of this and discuss them at the meeting tomorrow. She would be happy to help with the referral process. My concern is that Will won't agree to the services. Met with Will later in the day. He was smiling, pleasant and was able to freely share his thoughts. I told him about the meeting with his aunt for tomorrow. I asked if he had gotten in a disagreement with his aunt yesterday? He said that they have a difference of opinion when it comes to the meds. He talked about how he feels that the medication is not a cure all and that these are not "voices" that he hears. He talked about it being "people" and how upsetting it is to feel that people don't believe that what he hears is real. I reiterated that our goal is to get him feeling that when he leaves the hospital he can feel safe and resume daily activities in his life, life going to the store, sleeping, paying bills ect.. I asked if he felt as if he would be able to do those things? He said he didn't know and he would just have to see. Asked how he was feeling physically? He said ok. I asked if he has experienced any electrical feelings going through his body? He said "not today". I did take the opportunity to talk about [facility] services. Explained that the program helps people who wouldn't otherwise qualify for nursing and that it helps people stay out of the hospital and in their home. He seemed interested, but ambivalent. Said he would like to see more information about it. Didn't think that he may necessarily need it. I told him that the services don't happen right away and that it can take time so we could look into it, or Guerline could do the referral with him. He will think about it.
[2016-11-16 12:20] VITALS: BP 103/54
--- NOTE | 2016-11-16 12:42 | NUR ---
PT IS COMPPLIANT AND COOPEATIVE WITH RULES OF UNIT. PT IS OUT IN COMMUNITY INTERACTING WELL [facility] STAFF AND PEERS. PT IS SPENDING MOST OF TIME OUT OF ROOM. PT IS ATTENDING GROUPS. PT MOOD IS STABLE WITH A FULL RANGE AFFECT. PT DENIES SI THOUGHTS
[2016-11-16 15:54] VITALS: BP 138/66
--- NOTE | 2016-11-16 16:12 | CP SOUTH PROGRESS NOTE PSYCH ---
Psych (Inpt) Progress Note Progress Note Progress Note: I discussed this patient's progress to date, current mental status, treatment process in the context of the treatment plan, and discharge planning with staff/ team in the daily morning inpatient team meeting. I also met with the patient myself in individual session. A total of 15 minutes was spent with the patient with more than 50% spent in counseling and/or coordination of care. SUBJECTIVE: The only voices that I hear are attached to real physical people." OBJECTIVE: Current Medications Sig/Bijal Start time Last Medication Dose Route Stop Time Status Admin Atenolol 50 MG DAILY 11/07 1000 AC 11/16 PO 0856 Atorvastatin Calcium 40 MG 1700 11/08 1700 AC 11/15 PO 1803 Diphenhydramine HCl 50 MG ONCE PRN 11/09 1230 AC IM Docusate Sodium 100 MG BID 11/13 1012 AC 11/14 PO 2117 Haloperidol 5 MG ONCE PRN 11/09 1230 AC IM Hydrochlorothiazide 12.5 MG DAILY 11/07 1000 AC 11/16 PO 0856 Hydroxyzine HCl 50 MG 1700 11/16 1700 UNVr PO Hydroxyzine HCl 50 MG Q4 HRS NEEDED PRN 11/09 1645 r 11/15 PO 1839 Levothyroxine Sodium 0.1 MG DAILY AC 11/07 0758 AC 11/16 PO 0642 Losartan Potassium 50 MG DAILY 11/07 1000 AC 11/16 PO 0856 Methadone HCl 100 MG 8AM 11/16 0800 AC 11/16 PO 0855 Polyethylene Glycol 17 GM DAILY NEEDED PRN 11/13 1015 AC PO Risperidone 3 MG BID 11/14 2200 AC 11/16 PO 0856 Senna 187 MG AT BEDTIME 11/13 2200 AC 11/15 PO 2118 Topiramate 100 MG AT BEDTIME 11/07 2200 AC 11/15 PO 2118 Trazodone HCl 100 MG QPM 11/07 2200 AC 11/15 PO 2118 Vital Signs Date Time Temp Pulse Resp B/P Pulse O2 O2 Flow FiO2 Ox Delivery Rate 11/16 1554 82 138/66 11/16 1220 66 103/54 11/16 0856 97.2 82 16 137/74 11/16 0809 97.2 82 137/74 11/15 1940 98.7 77 95/74 ASSESSMENT: Patient appears much improved today. Calm and cooperative. Not asking intrusive, paranoid questions. Patient was happy to hear that his Aunt Esther would be here tomorrow for a family meeting. He reports having exacerbations of anxiety at around dinner time, mostly due to the influx of visitors during those hours. States that Atarax helps somewhat for acute anxiety, and request that Atarax be given at dinnertime. Otherwise tolerating his medications well, without complaint. Although the patient's presentation is much improved since his arrival, it is still not clear to me whether or not the patient still suffers from auditory hallucinations and paranoia. We hope to have further clarification during the family meeting tomorrow. Denies depression. Anxiety is mild, except for during visiting hours. He feels uncomfortable with so many visitors on the unit. Denies suicidal ideation, homicidal ideation, auditory hallucinations, visual hallucinations, paranoid ideation. Speech is well articulated, goal-directed, average in rate, volume and tone. Cooperative. Alert and oriented 3. The patient understands the risks/benefits/side effects of the medication and is agreeable to continue taking them. PLAN: Atarax 50 mg at 5 PM. Family meeting tomorrow morning. Continue with current management as patient is improving. Continue to provide support and encouragement.
[2016-11-16 19:42] VITALS: BP 100/63
--- NOTE | 2016-11-16 22:02 | NUR ---
Pt is out in the community affect is flat, irritable while on the phone. Complaint and cooperative with the staff vital signs are stable appetite is good. Will continue to monitor the pt overnight.
--- NOTE | 2016-11-17 05:27 | NUR ---
PT APPEARED TO SLEEP WELL.
[2016-11-17 08:10] VITALS: BP 133/79
--- NOTE | 2016-11-17 12:12 | SOCIAL WORKER PROG NOTE PSYCH ---
Social Work Progress Note Progress Note Will's Aunt Nicolle came in for a family meeting this morning. Andre Zacarias APRN was also in attendance. Will's presentation during the meeting was very different than what I have seen in the last few days. Will appeared tired, more irritable, and was using profanity throughout the meeting. He admits to feeling somewhat better than when he came in, but is adamant that there are still people talking to him and that these people are real. He believes there is a conspiracy and that these people are after him. He was getting very defensive as there was alot of reality testing at the meeting. He said he could hear the people as we sat there in the conference room, but denied the fact that we saw no other people there, so how could this be true? He does not want to believe that these may be hallucinations. Andre Zacarias specifically told him that we think that these are symptoms of his illness. He states that he only has depression and anxiety so why we he need to take the medications that we were prescribing him. He talked about wanting to talk to his prescriber at [facility] to change these meds when he sees her. Will was upset about being told that he may leave this week and that we were now changing our minds based on what happened at this meeting. He was presented with a couple of options: 1 ) sign a 3 day termination of voluntary status paper, which would put him at Tuesday or 2) agree to have further treatment and look at changing his medications. Andre introduced the idea of trying out Zapata for his mood. Will did not make any decision at the meeting and instead became agitated and ended the meeting. He then said he would talk to each of us individually.
[2016-11-17 12:19] VITALS: BP 125/71
--- NOTE | 2016-11-17 12:49 | NUR ---
Pt is present on the unit, interacting with peers and staff, pleasant, calm and cooperative, is medication compliant, attended planning meeting this morning and his goal was to assist in coordinating discharge plan with treatment team, self reports improvement in mood and paranoid thoughts, no issues reported or observed, VSS, mood stable with full range affect.
--- NOTE | 2016-11-17 13:11 | CP SOUTH PROGRESS NOTE PSYCH ---
Psych (Inpt) Progress Note Progress Note Progress Note: I discussed this patient's progress to date, current mental status, treatment process in the context of the treatment plan, and discharge planning with staff/ team in the daily morning inpatient team meeting. I also met with the patient myself in individual session. A total of 50 minutes was spent with the patient with more than 50% spent in counseling and/or coordination of care. SUBJECTIVE: "The truth is that real people are trying to kill me. The real issue is that I'm not insane. You are not going to help me by changing medications. Nobody here tells the truth, why should I tell you the truth." OBJECTIVE: Current Medications Sig/Bijal Start time Last Medication Dose Route Stop Time Status Admin Atenolol 50 MG DAILY 11/07 1000 AC 11/17 PO 0830 Atorvastatin Calcium 40 [place] 17011/08 1700 AC 11/16 PO 1705 Diphenhydramine HCl 50 MG ONCE PRN 11/09 1230 AC IM Divalproex Sodium 500 MG 799,11/17 2000 UNVr PO Docusate Sodium 100 MG BID 11/13 1012 AC 11/17 PO 0830 Haloperidol 5 MG ONCE PRN 11/09 1230 AC IM Hydrochlorothiazide 12.5 MG DAILY 11/07 1000 AC 11/17 PO 0830 Hydroxyzine HCl 50 MG 1700 11/16 1700 AC 11/16 PO 1705 Hydroxyzine HCl 50 MG Q4 HRS NEEDED PRN 11/09 1645 AC 11/15 PO 1839 Levothyroxine Sodium 0.1 MG DAILY AC 11/07 0758 AC 11/17 PO 0639 Losartan Potassium 50 MG DAILY 11/07 1000 AC 11/17 PO 0830 Methadone HCl 100 MG 8AM 11/16 0800 AC 11/17 PO 0830 Polyethylene Glycol 17 GM DAILY NEEDED PRN 11/13 1015 AC PO Risperidone 3 MG BID 11/14 2200 AC 11/17 PO 0830 Senna 187 MG AT BEDTIME 11/13 220 AC 11/16 PO 2122 Topiramate 100 MG AT BEDTIME 11/07 2200 AC 11/16 PO 2122 Trazodone HCl 100 MG QPM 11/07 2200 AC 11/16 PO 212 Vital Signs Date Time Temp Pulse Resp B/P Pulse O2 O2 Flow FiO2 Ox Delivery Rate 11/17 1541 73 145/80 11/17 1219 64 125/71 11/17 0830 75 133/79 11/17 0810 98.4 75 133/79 11/16 1941 98.6 79 100/63 ASSESSMENT: Today I met the patient along with his Aunt Esther, and health and social care teacher Imelda, in a family meeting. Today the patient appeared irritable, angry, using foul language, without threatening or physical aggression. He continues to report his beliefs that the voices which he hears are real people who are intent on causing him harm. Patient reports that he has been depressed and anxious, sometimes crying. States that he needs help with his depression. As per his Aunt Esther, the patient started using drugs and alcohol as a teenager, and has had long periods of time when he was abusing alcohol, crack cocaine, heroin and other drugs. Both the patient and Aunt Esther agreed that the patient was mostly well functioning, able to accomplish his activities of daily living up until a couple of months ago. States he started complaining of voices and hallucinations 10 years ago, but was able to maintain his lifestyle. Patient denies suicidal or homicidal ideation. Speech is well articulated, goal-directed, average in rate, volume and tone. The patient understands the risks/benefits/side effects of the medication and is agreeable to continue taking them. PLAN: Patient continues to have auditory hallucinations, paranoid delusions, now becoming irritable, although continues to be cooperative. Initiate Depakote for mood stability. Continue risperidone. Continue with current management as patient is improving. Continue to provide support and encouragement.
[2016-11-17 15:41] VITALS: BP 145/80
[2016-11-17 19:43] VITALS: BP 115/68
--- NOTE | 2016-11-17 21:38 | NUR ---
PT IS CALM, COOPERATIVE WITH STAFF AND PEERS, AND COMPLIANT WITH UNIT RULES. PT IS IN [place], INTERACTING WELL WITH OTHERS. MOOD IS STABLE, AFFECT IS SLIGHTLY FLAT AND CONSTRICTED, COMMUNICATION IS NORMAL, AND APPETITE IS NORMAL. PT DENIES SI AT THIS TIME.
--- NOTE | 2016-11-18 06:51 | NUR ---
PATIENT UP TO BATHROOM ONCE, OTHERWISE SLEPT.
[2016-11-18 08:08] VITALS: BP 134/66
[2016-11-18 12:29] VITALS: BP 110/58
--- NOTE | 2016-11-18 12:45 | NUR ---
PT NOT VISIBLE MUCH IN THE [place] TODAY. HE DID NOT ATTEND GROUPS, AND HAS SOME INTERACTIONS WITH PEERS AND STAFF. PT HAS BEEN COOPERATIVE ABOUT GETTING HIS VITALS, AND COMING OUT TO EAT LUNCH WITH HIS PEERS. PT DENIES HAVING THOUGHTS TO HURT HIMSELF WHEN ASKED.
--- NOTE | 2016-11-18 12:50 | CP SOUTH PROGRESS NOTE PSYCH ---
Psych (Inpt) Progress Note Progress Note Progress Note: I discussed this patient's progress to date, current mental status, treatment process in the context of the treatment plan, and discharge planning with staff/ team in the daily morning inpatient team meeting. I also met with the patient myself in individual session. A total of 25 minutes was spent with the patient with more than 50% spent in counseling and/or coordination of care. SUBJECTIVE: "Yup, the people are still with me." OBJECTIVE: Current Medications Sig/Bijal Start time Last Medication Dose Route Stop Time Status Admin Atenolol 50 MG DAILY 11/07 1000 AC 11/18 PO 0758 Atorvastatin Calcium 40 [place] 17011/08 1700 AC 11/17 PO 1741 Diphenhydramine HCl 50 MG ONCE PRN 11/09 1230 AC IM Divalproex Sodium 500 MG 08,11/17 2000 AC 11/18 PO 0758 Docusate Sodium 100 MG BID 11/13 1012 AC 11/18 PO 0757 Haloperidol 5 MG ONCE PRN 11/09 1230 AC IM Hydrochlorothiazide 12.5 MG DAILY 11/07 1000 AC 11/18 PO 0758 Hydroxyzine HCl 50 MG 1700 11/16 1700 AC 11/17 PO 1741 Hydroxyzine HCl 50 MG Q4 HRS NEEDED PRN 11/09 1645 AC 11/15 PO 1839 Levothyroxine Sodium 0.1 MG DAILY AC 11/07 0758 AC 11/18 PO 0704 Losartan Potassium 50 MG DAILY 11/07 1000 AC 11/18 PO 0758 Methadone HCl 100 MG 8AM 11/16 0800 AC 11/18 PO 0757 Polyethylene Glycol 17 GM DAILY NEEDED PRN 11/13 1015 AC PO Risperidone 3 MG BID 11/14 2200 AC 11/18 PO 0758 Senna 187 MG AT BEDTIME 11/13 220 AC 11/17 PO 2130 Topiramate 100 MG AT BEDTIME 11/07 220 AC 11/17 PO 2130 Trazodone HCl 100 MG QPM 11/07 220 AC 11/17 PO 2130 Vital Signs Date Time Temp Pulse Resp B/P Pulse O2 O2 Flow FiO2 Ox Delivery Rate 11/18 1229 62 110/58 11/18 0808 98.5 83 134/66 11/18 0758 98.4 75 16 115/68 11/17 1943 98.4 75 115/68 11/17 1541 73 145/80 ASSESSMENT: Met the patient today along with high school social science teacher Imelda. Patient presented in a pleasant and cooperative manner today, exhibiting a good sense of humor. Laughing at times appropriately. Patient continues to endorse hearing voices of real people, who were not currently present, and that other people cannot hear. States this is not a psychiatric illness, but real people who are speaking to him. States that he feels tired this morning although he got a good night sleep last night. States he was up early, did his laundry and took a shower. She states that he did not cry last night, however still feels mood lability. Complaining of increased anxiety. He has been encouraged to take prn Atarax as ordered for exacerbations of anxiety. Depression:0/10; Anxiety:5/10 (with 10 the worst.) Denies suicidal ideation, homicidal ideation, auditory hallucinations, visual hallucinations, paranoid ideation. Denies suicidal ideation stating "I never have that." Denies auditory hallucinations, stating that the voices he hears are real, not hallucinations. Speech is well articulated, goal-directed, average in rate, volume and tone. Today, cooperative, pleasant. Alert and oriented 3. The patient understands the risks/benefits/side effects of the medication and is agreeable to continue taking them. PLAN: Depakote level Tuesday. Continue with current management as patient is improving. Continue to provide support and encouragement.
--- NOTE | 2016-11-18 13:02 | SOCIAL WORKER PROG NOTE PSYCH ---
SARAHERASMO 11/18/16 1254: Social Work Progress Note Progress Note Will was sleeping around 11:45am when I prompted him to come and meet with Andre aZcarias APRN and Rogers. Will had a little difficulty waking up initially, complaining of some fatigue. States he slept well last night, despite feeling sleepy today. Presentation was much improved from yesterday. There was no irritability or swearing during his conversation with Andre and Rogers today. He reported that he is still hearing the people and said "they are hanging with me ". He denies that they are threatening him at this time. Continues to talk about how everything that has happened to him is real. He feels that he has good judgement and could navigate his life right now if he were to leave and go home soon. Denied any depression or crying episodes. Reports increased anxiety. Rates it at a 5 on a scale from 1-10 10 being worst. Talks about tightness in his chest and shortness of breath. He reports that this is new from this week. AAMIR CHANG LCSW 11/18/16 1538: Social Work Progress Note Progress Note Please include, when applicable: * Interviews with the patient * Interviews with family members * Assessments linked to the treatment plan * Additions to or changes in the treatment plan along with reasons for same * Contacts with family and significant others in treatment, including family meeting(s) * Family attitudes * Community resource contacts and liaison with other clinicians/agencies
--- NOTE | 2016-11-18 15:40 | SOCIAL WORKER PROG NOTE PSYCH ---
Social Work Progress Note Progress Note Will was sleeping around 11:45am when I prompted him to come and meet with Andre Zacarias APRN and Rogers. Will had a little difficulty waking up initially, complaining of some fatigue. States he slept well last night, despite feeling sleepy today. Presentation was much improved from yesterday. There was no irritability or swearing during his conversation with Andre and Rogers today. He reported that he is still hearing the people and said "they are hanging with me ". He denies that they are threatening him at this time. Continues to talk about how everything that has happened to him is real. He feels that he has good judgement and could navigate his life right now if he were to leave and go home soon. Denied any depression or crying episodes. Reports increased anxiety. Rates it at a 5 on a scale from 1-10 10 being worst. Talks about tightness in his chest and shortness of breath. He reports that this is new from this week. Guerilne from [employer] returned my call from earlier today and left me a message that she can see Will on Thursday 11/23 2pm. She said that she hasn't been able to schedule an appt. with Harpreet Jones and that Andre Zacarias APRN should feel free to call her directly tomorrow [phone].
[2016-11-18 16:11] VITALS: BP 133/69
[2016-11-18 19:44] VITALS: BP 145/74
--- NOTE | 2016-11-18 21:34 | NUR ---
PT IS COOPERATIVE WITH STAFF AND PEERS, AND IS COMPLIANT WITH UNIT RULES. PT AT [facility] APPEARS AGGITATED, MAKING ANGRY REMARKS UNDER BREATH THAT DO NOT SEEM TO MAKE SENSE IN REGARDS TO CURRENT SITUATION, MAKING THE PT APPEAR SLIGHTLY DELUSIONAL. MOOD IS STABLE, AFFECT IS SLIGHTLY FLAT/CONSTRICTED, COMMUNICATION IS NORMAL, AND APPETITE IS NORMAL. PT DENIES SI AT THIS TIME.
[2016-11-19 08:22] VITALS: BP 150/76
--- NOTE | 2016-11-19 11:31 | SOCIAL WORKER PROG NOTE PSYCH ---
Social Work Progress Note Progress Note Attempted to meet with Will around 11:15am. He was in his room sitting on his bed, but falling asleep. He had difficulty responding to me because he was so sleepy. He then told me he was just waking up and that he didn't get much sleep because his room was changed. I encouraged him to try and wake up and to come see me. Received a message from Guerline (clinician at [facility]) that Will will have an appt. with Harpreet Bourne (SP?) on 12/10 at 10:20am.
[2016-11-19 12:45] VITALS: BP 100/61
--- NOTE | 2016-11-19 13:51 | CP SOUTH PROGRESS NOTE PSYCH ---
Psych (Inpt) Progress Note Progress Note Progress Note: I discussed this patient's progress to date, current mental status, treatment process in the context of the treatment plan, and discharge planning with staff/ team in the daily morning inpatient team meeting. I also met with the patient myself in individual session. A total of 15 minutes was spent with the patient with more than 50% spent in counseling and/or coordination of care. SUBJECTIVE: "I'm not hearing any voices. It's quiet." OBJECTIVE: Current Medications Sig/Bijal Start time Last Medication Dose Route Stop Time Status Admin Atenolol 50 MG DAILY 11/07 1000 AC 11/19 PO 0836 Atorvastatin Calcium 40 MG 1700 11/08 1700 AC 11/18 PO 1605 Diphenhydramine HCl 50 MG ONCE PRN 11/09 1230 AC IM Divalproex Sodium 500 MG 0800,11/17 2000 AC 11/19 PO 0839 Docusate Sodium 100 MG BID 11/13 1012 AC 11/19 PO 0836 Haloperidol 5 MG ONCE PRN 11/09 1230 AC IM Hydrochlorothiazide 12.5 MG DAILY 11/07 1000 AC 11/19 PO 0837 Hydroxyzine HCl 50 MG 0800,1300,1700,2200 11/18 1330 AC 11/19 PO 1327 Levothyroxine Sodium 0.1 MG DAILY AC 11/07 0758 AC 11/19 PO 0645 Losartan Potassium 50 MG DAILY 11/07 1000 AC 11/19 PO 0837 Methadone HCl 100 MG 8AM 11/16 0800 AC 11/19 PO 0835 Polyethylene Glycol 17 GM DAILY NEEDED PRN 11/13 1015 AC PO Risperidone 3 MG BID 11/14 220 AC 11/19 PO 0836 Senna 187 MG AT BEDTIME 11/13 2200 AC 11/18 PO 2122 Topiramate 100 MG AT BEDTIME 11/07 2200 AC 11/18 PO 2123 Trazodone HCl 100 MG QPM 11/07 220 AC 11/18 PO 2122 Vital Signs Date Time Temp Pulse Resp B/P Pulse O2 O2 Flow FiO2 Ox Delivery Rate 11/19 1245 62 100/61 11/19 0837 96.6 64 16 150/76 11/19 0822 96.6 64 150/76 11/18 1944 98.4 84 145/74 11/18 1611 65 133/69 ASSESSMENT: Patient states these feeling more calm, but also more tired during the day. States that the hydroxyzine "calms me down." States he has been napping during the day frequently. Depakote level tomorrow. Patient denies depression. States that anxiety continues, however the Atarax has been helping. Patient verbalizes understanding at the Atarax may be contributing to his daytime sedation. Denies suicidal ideation, homicidal ideation, auditory hallucinations, visual hallucinations, paranoid ideation. Patient states that he is not hearing any voices today. It is unclear to me whether or not he is being truthful about the voices, or just telling me what he thinks he needs to say in order to be discharged. Speech is well articulated, goal-directed, average in rate, volume and tone. Calm, cooperative, pleasant and logical. Alert and oriented 3. States his appetite is good, he is enjoying the food here at the hospital. The patient understands the risks/benefits/side effects of the medication and is agreeable to continue taking them. PLAN: Today the patient is calm and cooperative. No anger or irritability noted. States that he is not hearing voices. He appears to be making progress. We will anticipate discharge on Tuesday morning. Continue with current management as patient is improving. Continue to provide support and encouragement.
--- NOTE | 2016-11-19 14:03 | NUR ---
PT IS COMPLIANT AND COOPERATIVE. MOOD IS STABLE WITH A CONSTRICTED AND EUTHYMIC AFFECT. PT DENIES SI AT THIS TIME, NO COMPLAINTS OFFERED. PT APPEARS TO BE GUARDED AND DISTRACTED BY THOUGHTS AT TIMES, NO AH/VH REPORTED. PT TENDS TO BE ISOLATIVE IN ROOM, HAS SOME INTERACTION WITH PEERS AND STAFF WHEN PRESENT ON UNIT. PT HAS ATTENDED ONE GROUP. VITALS ARE STABLE, APPETITE IS GOOD.
[2016-11-19 16:15] VITALS: BP 116/60
[2016-11-19 19:33] VITALS: BP 123/68
--- NOTE | 2016-11-19 21:13 | NUR ---
PT IS CALM, COOPERATIVE WITH STAFF AND PEERS, AND COMPLIANT WI UNIT RULES. PT IS IN [place] INTERACTING WELL WITH OTHERS. BEHAVIOR HAS BEEN APPROPRIATE THOUGHOUT EVENING, NO MAJOR COMPLAINTS FROM PT. MOOD IS STABLE, AFFECT IS FULL RANGE, THOUGHTS AT TIME APPEAR DISORDERED, COMMUNICATION IS NORMAL, APPETITE IS NORMAL. PT DENIES SI AT THIS TIME.
[2016-11-20 08:17] VITALS: BP 121/96
--- NOTE | 2016-11-20 10:00 | NUR ---
Dr. Patel advised on Depakote level of 56.8
[2016-11-20 12:51] VITALS: BP 122/60
--- NOTE | 2016-11-20 13:48 | NUR ---
PT TODAY HAS BEEN VERY TIRED. HE WAS UNABLE TO MAKE ANY GROUPS TODAY, AND INTERACTING MINIMALLY WITH HIS PEERS. PT SHARED WITH THIS MHW THAT HE WANTS TO BE UP IN THE MILIE[place], BUT FALLS RIGHT BACK TO SLEEP WHEN HE IS CALLED FOR GROUPS, VITALS ETC. PT HAS BEEN COOPERATIVE WITH STAFF, AND DENIES THOUGHTS OF HURTING HIMSELF WHEN ASKED.
[2016-11-20 16:02] VITALS: BP 126/66
--- NOTE | 2016-11-20 18:08 | CP SOUTH PROGRESS NOTE PSYCH ---
Psych (Inpt) Progress Note Progress Note Seen for follow up for Unspecified schizophrenia. He has been hospitalized for 10 days currently. Discussed with the unit staff and seen individually. He is pleasant and cooperative. He has a blank stare into space. no eye contact. He's having poverty of speech and thought. He denies suicidal/homicidal ideation , auditory/visual hallucinations or side effects of the medications. He believes that he is being "set up" because "some people want to take my money " but he has a plan to detach from these negative people and is dtermined to not be "a victim of their schemes". He has been keeping to himself on the unit, being pleasant and cooperative. He has been taking his medication. Looks forward to being discharged Tuesday. Because he says "I have been spending too long in the hospital this year I was in [facility], [facility], here, it is too much. I need to go home. Have to do a lot of things." The patient seems to be at his baseline and is set to be discharged Tuesday. VPA level therapeutic. The EKG results showed improved QTC interval currently 455 compared to 489 EKG he had on 07 November. He is not currently in any acute stress. We will continue present management and she will be discharged Tuesday.
[2016-11-20 19:17] VITALS: BP 110/66
--- NOTE | 2016-11-20 21:23 | NUR ---
PT IS VERY SEDATED THIS EVENING SHIFT-- FALLING ASLEEP WHILE VISITING WITH HIS AUNT. PT REPORTS THAT THE MEDICATION IS MAKING HIM VERY TIRED AND HE DOES NOT LIKE THE WAY IT IS AFFECTING HIS BODY. ENCOURAGED TO DISCUSS WITH THE DOCTOR TOMORROW WHEN HE MEETS WITH THE WEEKEND PSYCHIATRIST. OTHERWISE COMPLIANT AND COOPERATIVE. ATTENDING GROUPS. VS ARE STABLE AND DENIES ANY SI/HI TO THIS MHW.
--- NOTE | 2016-11-21 06:25 | NUR ---
PT APPEARED TO SLEEP. PT MUCH MORE ANIMATED WITH STAFF.
[2016-11-21 07:46] VITALS: BP 130/82
[2016-11-21 12:43] VITALS: BP 127/65
--- NOTE | 2016-11-21 13:43 | NUR ---
PT NOT VISIBLE MUCH IN THE [place] TODAY. HE COMPLAINED OF FEELING TIRED, AND HAS BEEN SLEEPING MOST OF THE DAY. PT HAS NOT BEEN IN ANY GROUPS TODAY, AND HAS SOME INTERACTIONS WITH PEERS AND STAFF. PT HAS BEEN COOPERATIVE WHEN HE IS IN THE [place], AND DENIES THOUGHTS OF HARMING SELF WHEN ASKED.
[2016-11-21 15:59] VITALS: BP 110/63
[2016-11-21 19:26] VITALS: BP 143/71
--- NOTE | 2016-11-21 20:48 | CP SOUTH PROGRESS NOTE PSYCH ---
Psych (Inpt) Progress Note Progress Note The patient was seen for follow-up for unspecified schizophrenia. The patient was discussed with unit staff and seen individually. According to the unit staff, the patient continues to be withdrawn, isolative, internally preoccupied. He is calm, and cooperative with treatment. There are no behavioral abnormalities observed. He sleeps through the night, eats and is compliant with the medication. During the individual session, the patient appears pleasant and cooperative. He has a very unsettling gaze, seems to be looking straight at you but not seeing. His discourse is also peculiar. He repeats the questions you ask and then gives a delayed response. At times he is smiling inappropriately, without any apparent reason. When asked what was going on, he is stating "what is going on? Nothing is going on." The patient denies suicidal/homicidal ideation, auditory/visual hallucinations, or side effects from the medications. The patient understands the risks/benefits/side effects of the medication and is agreeable to continue taking them. The patient feels ready to be discharged tomorrow, and is willing to participate in the intensive outpatient program treatment offered to him. We will continue present management, observation, symptom monitoring, and discharge planning. The patient will be followed up daily by the unit psychiatrist.
--- NOTE | 2016-11-21 21:19 | NUR ---
PATIENT ALERT AND ORIENTED X3; CALM AND COOPERATIVE WITH STAFF; SAT IN LOUNGE WATCHING TV WITH PEERS, LESS ISOLATIVE THIS EVENING; ATTENDED GROUP; PATIENT DENIES CURRENT HALLUCINATIONS OR SUICIDAL IDEATION; VITAL SIGNS WNL.
--- NOTE | 2016-11-22 05:57 | NUR ---
PATIENT WAS UP TO BATHROOM SEVERAL TIMES, OTHERWISE SLEPT.
[2016-11-22 07:46] VITALS: BP 126/79
--- NOTE | 2016-11-22 08:20 | CP SOUTH PROGRESS NOTE PSYCH ---
Psych (Inpt) Progress Note Progress Note Progress Note: I discussed this patient's progress to date, current mental status, treatment process in the context of the treatment plan, and discharge planning with staff/ team in the daily morning inpatient team meeting. I also met with the patient myself in individual session. A total of 30 minutes was spent with the patient with more than 50% spent in counseling and/or coordination of care. SUBJECTIVE: "I'm doing well. I'll be safe at home. I have rides if I need them." OBJECTIVE: EKG on 11/19/2016 QTC 455. Sinus rhythm 63. Current Medications Sig/Bijal Start time Last Medication Dose Route Stop Time Status Admin Acetaminophen 650 MG Q6-PRN PRN 11/20 2030 AC PO Atenolol 50 MG DAILY 11/07 1000 AC 11/21 PO 0757 Atorvastatin Calcium 40 MG 1700 11/08 1700 AC 11/21 PO 1719 Diphenhydramine HCl 50 MG ONCE PRN 11/09 1230 AC IM Divalproex Sodium 500 MG 0800,11/17 2000 AC 11/21 PO 2158 Docusate Sodium 100 MG BID 11/13 1012 AC 11/21 PO 2159 Haloperidol 5 MG ONCE PRN 11/09 1230 AC IM Hydrochlorothiazide 12.5 MG DAILY 11/07 1000 AC 11/21 PO 0757 Hydroxyzine HCl 50 MG 0800,1300,1700,2200 11/18 1330 AC 11/21 PO 2159 Levothyroxine Sodium 0.1 MG DAILY AC 11/07 0758 AC 11/22 PO 0645 Losartan Potassium 50 MG DAILY 11/07 1000 AC 11/21 PO 0757 Methadone HCl 100 MG 8AM 11/16 0800 AC 11/21 PO 0758 Polyethylene Glycol 17 GM DAILY NEEDED PRN 11/13 1015 AC PO Risperidone 3 MG BID 11/14 2200 AC 11/21 PO 2159 Senna 187 MG AT BEDTIME 11/13 220 AC 11/21 PO 215 Topiramate 100 MG AT BEDTIME 11/07 220 AC 11/21 PO 2159 Trazodone HCl 100 MG QPM 11/07 2200 AC 11/21 PO 2159 Vital Signs Date Time Temp Pulse Resp B/P Pulse O2 O2 Flow FiO2 Ox Delivery Rate 11/22 745 97.9 78 126/79 11/21 1925 97.4 71 143/71 11/21 1559 67 110/63 03 1243 55 127/65 ASSESSMENT: Patient reports he is safe and ready for discharge. He presents today in a calm and cooperative manner. Logical and alert and oriented 3. Patient continues to insist that we have misunderstood him, and that the voices he had heard, were voices of real people, and not hallucinations. He said he has not however heard those voices in the past couple of days. As per nursing report, over the weekend, the patient had been out on the unit, social, with organized and coherent thoughts. Patient has refused offer of long -acting injectable antipsychotic medication. In our team meeting today, it was agreed that although the patient may still be suffering from auditory hallucinations and some paranoid delusions, he is much improved since his arrival. We believe that he is not a danger to himself or others, and that he is competent to take care of his activities of daily living, including following up appropriately with his clinicians and medical providers. We believe that he is safe and ready for discharge. I spoke on the phone today with his aunt Esther, and we reviewed his discharge medication list, and follow-up plan at [facility], including a visit there tomorrow with his clinician. Depression:0/10; Anxiety:0/10 (with 10 the worst.) Denies suicidal ideation, homicidal ideation, auditory hallucinations, visual hallucinations, paranoid ideation. Speech is well articulated, goal-directed, average in rate, volume and tone. Alert and oriented 3. Cooperative. The patient understands the risks/benefits/side effects of the medication and is agreeable to continue taking them. PLAN: Discharge today. Patient will follow-up with his primary care physician and at [facility]. Continue with current management as patient is improving. Continue to provide support and encouragement.
--- NOTE | 2016-11-22 08:41 | SOCIAL WORKER PROG NOTE PSYCH ---
Social Work Progress Note Progress Note Received a message from Will's Aunt Nicolle. She reported that it was difficult to visit Will this weekend, due to her sedation. She was concerned about how tired he was and if he was going to function okay. Relayed this information to Andre Zacarias APRN. Andre and I met with Will together. Will also reported that his weekend was okay, but he was very sleepy. Andre recommends that he cut back on the Atarax. Will is calm, reports no depression, some anxiety (1-10 10 worst, Will is a 3). Reports no auditory or visual hallucinations. Says the people who were talking to him are quiet now. He doesn't know if he wants to remain on this medication regime. He still feels that maybe his others meds worked better for him. He was asked to continue on these medications until he meets with Harpreet Bourne at [facility] on 12/10. Will plans on his Aunt picking him up today. I told him I would be giving her a call to see if we could plan for 11:30-12pm. Called Nicolle and talked about her concerns over Will's sedation. I did tell her he would be discharged today. She was concerned about his driving and if he would stay on the meds. She will call me back to see what can be arranged to brass pickler Will today. Aunt left a message saying she can pick him up, but she also indicated that she was upset about not being given notice. Around 1pm Andre Zacarias APRN approached me and was with Will's Aunt in his office. Andre shared that Will was not doing well and would be staying in the hospital today. He was apparently making repetative statements about numbers and stated that the voices were telling him to say them. I called Guerline Padilla at [facility] and informed her that Will would not be discharging today and so he would not make their appt. tomorrow.
--- NOTE | 2016-11-22 08:56 | DISCHARGE SUMMARY REPORT-PSYCH ---
Visit Information Visit Dates/Diagnosis' Admission Date: 11/07/16 Discharge Date: 11/24/16 Reason for Admission: Patient presented to the ED for worsening paranoid and delusional ideation Psy Discharge Primary Diag: Psychotic d/o, unspecified. Psy Discharge Secondary Diag: HTN; Hyperlipidemia; hypothyoidism. Anxiety. Hospital Course Significant Lab Findings: Lab TSH 1.790 uIU/mL 11/06/16 1723 Methadone Screen > 735 NG/ML H 11/07/16 0810 Valproic Acid 56.8 ug/mL 11/20/16 0657 Course Complications: None. Consultations: The patient was seen for admission history and physical by Dr. Anand. Please refer to his note for additional information. Allergies: Coded Allergies: No Known Allergies (11/06/16) Hospital Course/TX Response: The patient was monitored on the unit for safety, auditory hallucinations, and paranoid delusions. He participated in multimodal treatments on the unit. The patient had been taking Seroquel prior to arrival at the hospital. This was discontinued due to the patient's exacerbation of auditory hallucinations, paranoid delusions, and agitation while taking this medication. He was medicated with risperidone for symptoms of auditory hallucinations, paranoid delusions, and agitation. He was medicated with Depakote for mood stability. Trazodone at night as a sleep aid. Hydroxyzine for anxiety. Methadone was decreased during his stay here to 95 mg daily. Family meetings were held along with his aunt, who is very involved with the patient's life. With the patient's permission, we reviewed treatment plans, medications, and discharge planning with her. She is his main support in life. Today, the day of discharge, he presented as calm and cooperative, eager for discharge home. He is alert and oriented 3. States he is feeling well. He is appropriately dressed, and groomed. We discussed this case in our morning team meeting, and it was agreed that the patient is safe for discharge home. Although auditory hallucinations apparently continue, he has demonstrated improvement while here, he is no longer exhibiting paranoia and fearfulness. He endorses hearing voices of people who are not physically present, however he consistently denies that these were hallucinations. Today he denies auditory hallucinations and paranoid ideation. He states that he will continue his medications as prescribed. States that any medication changes will be done after consultation with his regular prescriber at [facility], in [place]. States that he will have blood drawn tomorrow for a Depakote level. A lab slip has been provided. Depression:0/10; Anxiety:0/10 (with 10 the worst.) Denies suicidal ideation, homicidal ideation, auditory hallucinations, visual hallucinations, paranoid ideation. When asked about auditory hallucinations, patient states "never did." Speech is well articulated, goal-directed, average in rate, volume and tone. States that last night he slept "like a rock." Reports that his appetite is good. The patient understands the risks/benefits/side effects of the medication and is agreeable to continue taking them. He states and agrees that he will follow-up with his regular clinician and prescriber at [facility]. Patient reports tolerating his medications well, without complaint. States he feels safe and ready for discharge. He was driven home today by his aunt. Discharge HBIPS - Tobacco Use Treatment Offered Post DC Medications Offered: Refused Tob Medication Tx Post DC Tobacco Treatment Plan: [facility] Tobacco Tx Pgm Program Appt Date: 12/08/16 Program Appt Time: 1600 - EtOH/Drug Use D/O Treatment Offered Post DC Medications Offered: NA-No EtOH/Drug Use D/O Post DC EtOH/SubAbuse TX Plan: NA-No EtOH/Drug Use D/O Metabolic Screening - Screen if on a Neuroleptic Medication - Metabolic screening should include: - Blood Pressure, BMI, Glucose or Hgb A1c, & a - Lipid profile from within the past 365 days. Metabolic Screening () Not Applicable, patient not on a neuroleptic. OR ([x]) Patient on a neuroleptic(s) . Enter below results for Glucose or Hemoglobin A1C, and lipid panel if obtained during the last 365 days. BMI: 32.100 Blood Pressure: 154/93 Laboratory Results (If applicable): Lab Glucose 102 mg/dL H 11/06/16 1723 Discharge Instructions General Discharge Information Discharge Medications: Discharge Medications- (Dose, route, freq, indication): SSTART taking these NEW Home Medications: Divalproex Sodium Dose: ORAL, 0800,2000 for MOOD Qty: 42 Sent to (Divalproex Sodium) 500 Milligram STABILITY Refills: 0 Pharm 1 500 MG TABLET. Evening dose changed per Andre Zacarias APRN therefore meds given per order/EMAR: Last given Depakote 500mg on 11/24/16 @ 0800 and evening dose now at 750mg and last given 11/23/16 @ 1999. Trazodone HCl Dose: ORAL, Every night for Qty: 21 Sent to (Trazodone HCl) 100 100 Milligram SLEEP Refills: 0 Pharm 1 MG TABLET Last Taken: 11/23/16 Time: 2200 Risperidone Dose: ORAL, TWICE DAILY for Qty: 42 Sent to (Risperdal) 3 MG 3 Milligram CLEAR THOUGHTS Refills: 0 Pharm 1 TABLET Last Taken: 11/24/16 Time: 0800 Hydroxyzine HCl Dose: ORAL, 2 x Daily as Qty: 42 Sent to (Hydroxyzine HCl) 50 50 Milligram needed as needed for Refills: 0 Pharm 1 MG TABLET ANXIETY Per Andre Vargas APRN medication discontinued. CONTINUE taking these Home Medications: Methadone HCl (Methadone Dose: ORAL, DAILY for RECOVERY HCl) 10 MG/ML ORAL.CONC 100 Milligram Dose was changed by Andre Zacarias APRN therefore given per EMAR: Last Taken: 11/24/16 at 95mg Time: 0800 Losartan Potassium Dose: ORAL, DAILY for HEART (Losartan Potassium) 50 1 Tablet Last Taken: 11/24/16 MG TABLET Time: 0800 Atorvastatin Calcium Dose: ORAL, DAILY for (Atorvastatin Calcium) 1 Tablet CHOLESTEROL 40 MG TABLET Last Taken: Lipitor on 11/23/16 Time: 1700 Topiramate (Topiramate) Dose: ORAL, Every night for 100 MG TABLET 1 Tablet UNKNOWN Last Taken: 11/23/16 Time: 2200 Levothyroxine Sodium Dose: ORAL, DAILY BEFORE (Levothyroxine Sodium) 1 Tablet BREAKFAST for THYROID 100 MCG TABLET Last Taken: 11/24/16 Time: 0700 Hydrochlorothiazide Dose: ORAL, DAILY for WATER (Hydrochlorothiazide) 1 Capsule PILL 12.5 MG CAPSULE Last Taken: 11/24/16 Time: 0800 Atenolol (Atenolol) 50 Dose: ORAL, DAILY for HEART MG TABLET 1 Tablet Last Taken: 11/24/16 Time: 0800 STOP taking these DISCONTINUED Home Medications: Seroquel Ropinirole HCl (Requip) 2 MG Dose: ORAL, Every night for UNKNOWN TABLET 1 Tablet Reason Stopped: Per Doctor Decision 1: [id number], [address] [place] [address] Your Preferred Pharmacy [id number] [address] [place] [address] Multiple Neuroleptics: (x) Not Applicable OR Document below three failed attempts at monotherapy, or a plan to taper to monotherapy, or augmentation of Clozapine. () Patient's Diet: Regular Patient's Activity: No restrictions DC Disposition: Patient is returning to his own home. Recommendations: Follow-up at [facility] for medication management, therapy and clinical support. Take medications as directed. Consider initiating clozapine on an outpatient basis. Referred To: Provider Referral Service Date: 11/23/16 Referred To: [[facility]] [Guerline Padilla] Notes: Appt. with Guerline Padilla is 11/23/16 at [address] [place], [place] Provider Referral Service Date: 12/10/16 Referred To: [[facility]] [Harpreet Bourne] Notes: Appt. with Harpreet Bourne APRN is 12/10/16 at 10:20am [address] [place], [place] Copies To: FLASH TAMAYO,LORI; [facility]
--- NOTE | 2016-11-22 08:59 | NUR ---
will be discharged today to [facility] follow up at [facility] in [place]. Mood is stable, full range of affect. dened any thoughts to self harm when asked. given education on schizo affective d/o.
[2016-11-22] MEDS ORDERED: DIVALPROEX SOD500 M2 PO (11:23)
[2016-11-22] MEDS ORDERED: RISPERDAL3 M1 PO (11:24)
[2016-11-22] MEDS ORDERED: HYDROXYZINE HCL50 M1 PO (11:24)
[2016-11-22] MEDS ORDERED: TRAZODONE HCL100 M1 PO (11:25)
[2016-11-22 12:14] VITALS: BP 123/51
--- NOTE | 2016-11-22 13:17 | CP SOUTH PROGRESS NOTE PSYCH ---
Psych (Inpt) Progress Note Progress Note Progress Note: I met the patient for a second time today with his aunt Esther, to review discharge medications. During this interview the patient started repeating the number "32", and the number "16" numerous times. When asked why he was repeating these numbers, he stated that "people" were telling it to him and he was just repeating it. He also started repeating that he needed to tell us "the story", but was unable to give any other information. He just kept repeating these things. He was unable to state the name of the hospital. He appeared increasingly anxious. He also appeared somewhat sedated, closing his eyes and falling asleep in the middle of conversations. Although he has been consistent during his stay here in saying that he wanted to go home as soon as possible, during our meeting today the patient stated he was willing to stay for continuing treatment. I discussed the patient's presentation with Dr. Duran and the charge nurse, and we decided that the patient would not be discharged today, and the patient agreed voluntarily to stay. PLAN: Discontinue Atarax, and decrease methadone from 100mg to 95mg Qam, as it appears to contributing to sedation. Discussed the patient's presentation with Dr. Duran and the charge nurse, and we decided that the patient would not be discharged today, and the patient agreed voluntarily to stay.
[2016-11-22 17:27] VITALS: BP 133/60
[2016-11-22 19:45] VITALS: BP 131/66
--- NOTE | 2016-11-22 21:02 | NUR ---
PT IS ISOLATIVE AND AND WITHDRAWN, SPENDING THE MAJORITY OF TIME IN PT ROOM THROUGHOUT THE EVENING. PT IS COOPERATIVE WITH STAFF AND PEERS WHEN INETRACTING. COMMUNICATION IS SLIGHTLY DISORGANIZED. MOOD IS STABLE, AFFECT IS BRIGHT TO FULL RANGE, AND APPETITE IS NORMAL. PT DENIES SI AT THIS TIME.
[2016-11-23 08:01] VITALS: BP 125/79
--- NOTE | 2016-11-23 11:25 | SOCIAL WORKER PROG NOTE PSYCH ---
Social Work Progress Note Progress Note Please include, when applicable: * Interviews with the patient * Interviews with family members * Assessments linked to the treatment plan * Additions to or changes in the treatment plan along with reasons for same * Contacts with family and significant others in treatment, including family meeting(s) * Family attitudes * Community resource contacts and liaison with other clinicians/agencies
[2016-11-23 12:49] VITALS: BP 104/66
--- NOTE | 2016-11-23 13:17 | CP SOUTH PROGRESS NOTE PSYCH ---
Psych (Inpt) Progress Note Progress Note Include the following elements, when applicable: Involvement in the active treatment of the patient with behavioral observations of the patient and the patient's response to the treatment. Review of the ongoing treatment process in the context of the treatment plan. Indication of how multi-disciplinary staff members are carrying out the treatment plan. Plans for future interventions and recommendations for revision of the treatment plan. Liaison with other physicians/providers. Progress Note: Medication list reviewed. Case and treatment plan discussed in team meeting. Staff reports that the patient was perseverative and bizarre about the number 32 yesterday. Patient seen with Iván, 3, at 11:27 a.m. The patient is an ambulatory, casually dressed WM sitting in a chair in [facility]. Calm, polite and cooperative. No psychomotor agitation/retardation. Speech normal in volume, rate and tone. Affect is calm and blunted. Reports he was hospitalized because of anxiety. Feels a lot better now, less anxious. Reports that his mood has stabilized. Sad: 50%. Anxiety: like 50%. Denies feeling hopeless, helpless, worthless or guilty. Denies active and passive SI and HI. Reports he isn't having any AH now but seemed distracted a couple of times during the interview. He is unable to say when he last had AH. Denies VH, PI and magical nolasco. Denies concerns about aliens, ray guns, #32, microphones or microchips in his ear or lightening running through his body. Minimizing any reports of these in the past, "who told you that?" Tolerating medications well. Sleep: alright. Appetite: fine. Energy: alright. IMPRESSION: Slow progress. Continue present treatment plan. Anticipate discharge this week.
--- NOTE | 2016-11-23 13:42 | NUR ---
PT WAS IN AND OUT OF THE [facility] TODAY. HE ONLY ATTENDED PART OF ONE GROUP TODAY. HIS INTERACTIONS ARE MINIMAL, BUT HAS BEEN CALM, AND COOPERATIVE. PT WAS HOPING TO BE DISCHARGED TODAY BUT HAS BEEN ABLE TO STAY SAFE, DENYING ANY THOUGHTS TO HURT HIMSELF.
--- NOTE | 2016-11-23 13:47 | SOCIAL WORKER PROG NOTE PSYCH ---
Social Work Progress Note Progress Note Pt was concerned "about a creepy dream, I just had", when asked to elaborate he mentioned he thought he was in "debt over thousands and thousands of dollars". Pt was preoccupied with voices, and was mentioning dischrage, and asked about plans. He stated he wanted to "know the plan". He was alert, confused and cooperative he was agreeable to ongoing monitoring and being involved with his Aunt and [facility].
[2016-11-23 16:12] VITALS: BP 99/60
[2016-11-23 19:42] VITALS: BP 146/56
--- NOTE | 2016-11-23 22:52 | NUR ---
PT IS COOPERATIVE WITH STAFF AND PEERS, AND COMPLIANT WITH UNIT RULES. PT APPEARS ANXIOUS AT TIMES, AND COMPLAINS AT TIMES OF NERVOUSNESS. MOOD IS STABLE, AFFECT APPEARS BRIGHT TO FULL RANGE, COMMUNICATION IS AT TIME HYPERVERBAL, AND APPETITE IS NORMAL. PT DENIES SI AT THIS TIME.
--- NOTE | 2016-11-24 04:06 | NUR ---
SLEPT WELL LOOKING FOR MEDS ATT THE TIME.
[2016-11-24 08:08] VITALS: BP 154/93
[2016-11-24 08:10] VITALS: BP 154/93
--- NOTE | 2016-11-24 09:55 | SOCIAL WORKER PROG NOTE PSYCH ---
Social Work Progress Note Progress Note Andre Zacarias APRN and I talked to Will briefly this morning. Will was showered and well groomed. He looked alert and was asking about discharging today if possible. He was irritated with the fact that the plan changed on Tuesday and he didn't leave as planned. Andre talked with him about the symptoms he was exhibiting on Tuesday that prevented his discharge. Will stated he didn' t recall repeating numbers and thought Anrde was making it up. He denied any issues with people talking to him today and voiced wanting to discharge. I spoke with Will's Aunt Nicolle this morning. She shared concerns over his sedation, particularly in the afternoon hours. She wondered if he should be taking medications in the morning. Reported that he only took Seroquel in the evening for sleep. I told her I would share her concerns. She was also concerned about constipation. I did tell her that he may be discharge today and that I would find out more information after team meeting. Patient discussed at team meeting, where I shared the above information given to me by the Aunt. Dr. Duran informed us that he saw the patient yesterday and that he was ready for discharge today. I called Will's Aunt and informed her that Will would need to leave today and asked about transportation home. She stated she would call her sister and try and get back to me. A little while later she was on the unit waiting for him to leave, stating she rearranged her work schedule to pick him up. I attempted calling Guerline Padilla at [facility] a couple of times to get a follow up appt. She has not returned my call. Will will need to follow up with her to get an appt. He will see Harpreet Bourne on . Faxed W-10 to [facility].
[2016-11-24] MEDS ORDERED: SERTRALINE HCL100 MG PO (12:03)
[2016-11-24] MEDS ORDERED: QUETIAPINE FUM300 M1 PO (12:04)
--- NOTE | 2016-11-24 12:08 | CP SOUTH PROGRESS NOTE PSYCH ---
Psych (Inpt) Progress Note Progress Note Progress Note: I discussed this patient's progress to date, current mental status, treatment process in the context of the treatment plan, and discharge planning with staff/ team in the daily morning inpatient team meeting. I also met with the patient myself in individual session. A total of 30 minutes was spent with the patient with more than 50% spent in counseling and/or coordination of care. SUBJECTIVE: "I'm ready to go home. I have things I need to do." OBJECTIVE: Current Medications Sig/Bijal Start time Last Medication Dose Route Stop Time Status Admin Acetaminophen 650 MG Q6-PRN PRN 11/20 2030 AC PO Atenolol 50 MG DAILY 11/07 1000 AC 11/24 PO 0810 Atorvastatin Calcium 40 MG 17011/08 1700 AC 11/23 PO 1637 Diphenhydramine HCl 50 MG ONCE PRN 11/09 1230 AC IM Divalproex Sodium 500 MG 11/23 0800 AC 11/24 PO 0810 Divalproex Sodium 750 MG 11/22 2000 AC 11/23 PO 1950 Docusate Sodium 100 MG BID 11/13 1012 AC 11/24 PO 0810 Haloperidol 5 MG ONCE PRN 11/09 1230 AC IM Hydrochlorothiazide 12.5 MG DAILY 11/07 1000 AC 11/24 PO 0810 Levothyroxine Sodium 0.1 MG DAILY AC 11/07 0758 AC 11/24 PO 0640 Losartan Potassium 50 MG DAILY 11/07 1000 AC 11/24 PO 0810 Methadone HCl 95 MG 0800 11/23 0800 AC 11/24 PO 0811 Polyethylene Glycol 17 GM DAILY NEEDED PRN 11/13 1015 AC PO Risperidone 3 MG BID 11/14 220 AC 11/24 PO 0810 Senna 187 MG AT BEDTIME 11/13 220 AC 11/23 PO 2131 Topiramate 100 MG AT BEDTIME 11/07 220 AC 11/23 PO 2131 Trazodone HCl 100 MG QPM 11/07 220 AC 11/23 PO 2131 Vital Signs Date Time Temp Pulse Resp B/P Pulse O2 O2 Flow FiO2 Ox Delivery Rate 11/24 809 82 154/93 / 0808 97.8 82 154/93 / 1942 98.4 76 146/56 / 1612 61 99/60 / 1249 64 104/66 ASSESSMENT: Patient presents early this afternoon as calm and cooperative, eager for discharge home. He is alert and oriented 3. States he is feeling well. He is appropriately dressed, and groomed. We discussed this case in our morning team meeting, and it was agreed that the patient is safe for discharge home. The patient has demonstrated improvement while here, he is no longer exhibiting paranoia and fearfulness. Although the patient endorsed hearing voices of people during his stay here, he consistently denied that these were hallucinations. Today he denies hearing voices at all. He denies paranoid ideation. He states that he will continue his medications as prescribed. States that any medication changes will be done after consultation with his regular prescriber at [facility], in [place]. States that he will have blood drawn tomorrow for Depakote level. A lab slip has been provided. Depression:0/10; Anxiety:0/10 (with 10 the worst.) Denies suicidal ideation, homicidal ideation, auditory hallucinations, visual hallucinations, paranoid ideation. When asked about auditory hallucinations, patient states "never did." Speech is well articulated, goal-directed, average in rate, volume and tone. States that last night he slept "like a rock." Reports that his appetite is good. The patient understands the risks/benefits/side effects of the medication and is agreeable to continue taking them. PLAN: Discharge today. His aunt Esther is here to bring him home. I reviewed his discharge instructions, including medications, with his aunt today. He states and agrees that he will follow-up with his regular clinician and prescriber at [facility]. Continue with current management as patient is improving. Continue to provide support and encouragement.
--- NOTE | 2016-11-24 13:01 | NUR ---
Pt scheduled for discharge today, is present on the unit and interactions with peers and staff are appropriate, mood is stable with full range affect, reports overall improvement in mood, behavior, sleep and appetite, reported would stay & continue to be medication compliant and has + understanding of regiment, also reports motivation for discharge follow-up/plan, when asked directly denies SI/HI/hallucinations and also does not present with any overt or objective s/sx of internal stimuli or hallucinations. Pt met with provider, social worker assistant and this RN and stable overall and pt looking forward to discharging. Information packets re: SI and schizoaffective given to pt. Pt resource guide reviewed along with all pertinent number e.g., [facility], [facility], suicide hotline, etc. No issues or concerns reported or observed.
== END 2016-11-24 12:25 | DRG 885 ==
LOC: ENRESERVDT → ENRESERVTM → ERH 15:06 → CP SOUTH 11-07 10:14 → DELPENDDIS 11-07 10:14 → ERHI 11-07 10:14 → ENPENDDIS 11-07 10:14 → CP SOUTH 11-07 11:47
PROVIDERS: Emergency Medicine; ADMIT Psychiatry & Neurology Psychiatry
DX: F29 Unspecified psychosis not due to a substance or known physiological condition (principal); I10 Essential (primary) hypertension; E78.5 Hyperlipidemia, unspecified; E03.9 Hypothyroidism, unspecified; F41.9 Anxiety disorder, unspecified
CPT/HCPCS: 36415; 80307; 93005; 93010; 96372; 99291; G0480; J1200; J3490